=== PATIENT | female | born 1970 | race Caucasian/White ===

== ENCOUNTER 2024-09-13 12:56 | Outpatient (AMB) | payer BC, SELFPAY ==
--- OUTSIDE RECORDS SUMMARY | 2024-09-13 13:00 | XMS_ITS | Data Portability ---
Author Organization [place] [facility] Formerly [facility], Allergy Address [address] [address] Care Team Providers Care Healthcare Management Consultant Name Role Phone MIRTREVIN Primary Care Provider Assessment No assessment recorded. Plan of Treatment Reminders Order Date Submit Date Provider Last Modified By Organization Details Last Modified Time Details Appointments Estabs hed- Allergy f-up 6mon 2024 03:00P M KEYLA Ness MD Not available Not available Not available Lab None recorded . Referral None recorded . Procedures None recorded . Surgeries None recorded . Imaging None recorded . Medication Orders EpiPen 2-Christopher 0.3 mg/0.3 mL injectio n, auto-inj shannon 2023 024 [id number], [address], [place], [phone], 04/11/2024 15:20:25 Patient TargetsNo targets recorded. Patient InstructionsNo instructions recorded. Reason for Referral None Reported. Results Created Date Observation Date Name Description Value Unit Range Abnormal Flag Note LastModifiedBy Organization Detail LastModifiedTime 05/08/20 24 09/27/2022 imagi ng/di agnos tic resul t No observ ation record ed. [email or web address] Not Available 22:22:01 05/08/20 24 06/18/2020 imagi ng/di agnos tic resul t No observ ation record ed. [email or web address] Not Available 22:23:32 05/08/20 24 09/27/2022 audio gram No observ ation record ed. [email or web address] Not Available 22:23:51 05/08/20 24 06/18/2020 audio gram No observ ation record ed. [email or web address] Not Available 22:25:01 Result Notes None recorded. Problems Name Problem SNOMED Code Status Onset Date Resolution Date Notes Provider Name and Address Organization Details Recorded Time Sensorine ural hearing loss in left ear 83691692922 109 Active 2022 Sensorine ural hearing loss, unilatera l, left ear, with restricte d hearing on the contralat eral side; Note: Date Diagnosed : 09/27/2022 2:57 PM (H90.A22) Not Available [facility] 4 02:28:00 Bilateral disorder of Eustachia n tubes 60239063335 50463 Active 2022 Other specified disorders of Eustachia n tube, bilateral ; Note: Date Diagnosed : 09/27/2022 2:57 PM (H69.83) Not Available [facility] 4 02:28:07 Conductiv e hearing loss of right ear 6793830146 Active 2022 Conductiv e hearing loss, unilatera l, right ear with restricte d hearing on the contralat eral side; Note: Date Diagnosed : 09/27/2022 2:57 PM (H90.A11) Not Available [facility] 4 02:28:27 Sensorine ural hearing loss of bilateral ears 604720468 Active 2019 Sensorine ural hearing loss, bilateral ; Note: Date Diagnosed : 06/18/2020 2:43 PM (H90.3) Not Available [facility] 4 02:27:55 Allergic rhinitis 90840882 Active 2019 Other allergic rhinitis; Note: Date Diagnosed : 06/18/2020 3:13 PM (J30.89) Not Available [facility] 4 02:27:56 Perennial allergic rhinitis 376053068 Active 2023 KEYLA NEWMAN MD [address] [place] [address], [place], [address] , [facility] - [facility] 4 15:16:24 Problem Notes None recorded. Procedures Surgical History None recorded. Imaging Results Imaging Date Name Status LastModified by Organiz ation Details LastModified Time 09/27/2022 imaging/diagno stic result completed Information not available 05/08/2024 22:22:01 06/18/2020 imaging/diagno stic result completed Information not available 05/08/2024 22:23:32 09/27/2022 audiogram completed Information not available 05/08/2024 22:23:51 06/18/2020 audiogram completed Information not available 05/08/2024 22:25:01 Procedure Notes None recorded. Medical Equipment None Reported. Medications Name Sig Start Date Stop Date Status Note LastModified by Organization Details LastModified Time buspirone 5 mg tablet active Medicati on ID: [id number] B rand Name: buspiron e Send Method: E-Prescr ibed Sub s Allowed: subs OK Medic ationGen ericName : buspiron e Not Available Not Available Not Available fluconazo le 150 mg tablet TAKE 1 TABLET BY MOUTH DAILY active Not Available Not Available No t Available Zyrtec 10 mg tablet 2019 active Medicati on ID: [id number] B rand Name: Zyrtec S end Method: E-Prescr ibed Sub s Allowed: subs OK Medic ationGen ericName : Zyrtec Not Available Not Available Not Available ciproflox acin 250 mg tablet TAKE 1 TABLET BY MOUTH TWICE DAILY active Not Available Not Available No t Available amoxicill in 500 mg tablet active Not Available Not Available Not Available paroxetin e 30 mg tablet TAKE 1 TABLET BY MOUTH DAILY active Not Available Not Available No t Available paroxetin e 20 mg tablet TAKE 1 TABLET BY MOUTH DAILY active Not Available Not Available No t Available buspirone 10 mg tablet TAKE 1 TABLET BY MOUTH TWICE DAILY active Not Available Not Available No t Available losartan 25 mg tablet 2019 active Medicati on ID: [id number] B rand Name: losartan Send Method: E-Prescr ibed Sub s Allowed: subs OK Medic ationGen ericName : losartan Not Available Not Available Not Available buspirone 7.5 mg tablet TAKE 1 TABLET BY MOUTH TWICE DAILY active Not Available Not Available No t Available [address] 10 mg tablet 11/08 completed Medicati on ID: [id number] B rand Name: monteluk ast Send Method: E-Prescr ibed Sub s Allowed: subs OK Medic ationGen ericName : montel[place] ast Not Available Not Available Not Available epinephri ne 0.3 mg/0.3 mL injection , auto-inje ctor Take 1 auto by injectio n route. active Not Available Not Available No t Available losartan 100 mg-hydroc hlorothia zide 12.5 mg tablet TAKE 1 TABLET BY MOUTH DAILY active Not Available Not Available No t Available GaviLyte- G 236 gram-22.7 4 gram-6.74 gram-5.86 gram oral solution DRINK 1 GLASS EVERY 15-30 MINIUTES UNTIL FINISHED active Not Available Not Available No t Available OneTouch Verio test strips USE TWICE DAILY TO CHECK SUGAR active Not Available Not Available No t Available Flonase Allergy Relief 50 mcg/actua tion nasal spray,[employer] 2019 active Medicati on ID: [id number] B rand Name: Flonase Allergy Relief S end Method: E-Prescr ibed Sub s Allowed: subs OK Medic ationGen ericName : Flonase Allergy Relief Not Available Not Available Not Available OneTouch Verio Flex Meter USE TWICE DAILY active Not Available Not Available No t Available Mounjaro 5 mg/0.5 mL subcutane ous pen injector ADMINIST ER 5 MG UNDER THE SKIN WEEKLY active Not Available Not Available No t Available Mounjaro 2.5 mg/0.5 mL subcutane ous pen injector ADMINIST ER 2.5 MG UNDER THE SKIN WEEKLY active Not Available Not Available No t Available OneTouch UltraSoft 2 Lancet 30 gauge USE TO TEST SUGAR TWICE DAILY active Not Available Not Available No t Available Vitals Date Recorded Body height Body mass index (BMI) Body weight Provider Name and Address Organization Details Last Updated DateTime 04/11/2024 157.48 cm 34.2 kg/m2 37790.77 g Louis Murillo [place] [facility] 04/11/2024 14:59:48 Social History None recorded. Functional Status None recorded. Mental Status None recorded. Family History Nothing Reported. Medical History No medical history recorded. Gynecological HistoryNo gynecological history recorded. Obstetrics History GPAL:G 0 P 0 0 0 0 Past Encounters Encounter ID Performer Location Encounter Start Date Encounter Closed Date Diagnosis/Indication Diagnosis SNOMED-CT Code Diagnosis ICD10 Code [id number] KEYLA NEWMAN MD [facility] [address] [place] [address] 04/11/2024 14:24:56 04/11/2024 15:23:15 Perennial allergic rhinitis 671575952 J30.89 Health Concerns Section Related Observation LastModified by Organization Detai ls LastModified Time None Recorded Concern Status LastModified by Organization Details LastModified Time None Recorded Advance Directives Directive None Recorded Payers Encounter Date Sequence Insurance Name Policy Number Policy Benito Covered Member ID Benito Member ID Guarantor Name 04/11/2024 1 [employer]: [employer] [id number] Ayleen Perez [id number] Ayleen Perez Notes Date Note Type Note Provider Name and Address Organization Details Recorded Time 04/11/2024 text/html Began SLIT 11/2022. She has noted less ear infections since she began. She notes less nasal drainage too. No local or systemic reactions. Epipen has . She is using zyrtec. Uses flonase as needed. KEYLA NEWMAN MD [address] [place] [address], [phone], [facility] - [facility] 04/11/2024 15:20:08 OBGyn Episode No OBEpisode recorded.
--- OUTSIDE RECORDS SUMMARY | 2024-09-13 13:00 | XMS_ITS ---
Author Organization [facility] Address [address] [place] [address] Care Team Providers Care Remote Sensing Technologist Name Role Phone DAE YOUNGBLOOD Primary Care Provider NICO Smith Unavailable [phone] JEAN PIERRE ACOSTA Unavailable [phone] REASON FOR VISIT Wt mgt f/u MEDICATIONS Medication SIG (Take, Route, Frequency, Duration) Notes Start Date End Date Status Mounjaro 2.5 MG/0.5ML 2.5mg Subcutaneous weekly for 30 days Not-Taking Mounjaro 5 MG/0.5ML ADMINISTER 5 MG UNDE R THE SKIN WEEKLY for 28 Not-Taking Mounjaro 7.5 MG/0.5ML 7.5mg Subcutaneous weekly for 28 days 07/12/2024 Active Mounjaro 5 MG/0.5ML 5mg Subcutaneous wee kly for 30 days Active ZyrTEC Allergy 10 MG 1 tablet Orally Onc e a day Active Losartan Potassium-HCTZ 50-12.5 MG 1 tablet Orally Once a day Active busPIRone HCl 15 MG 1 tablet Orally Twic e a day Active PARoxetine HCl 30 MG 1 tablet in the mor suzanne Orally Once a day Active PROBLEMS Problem Type ICD Code Onset Dates Problem Status W/U Status Risk SNOMED Code Notes Problem Obesity (BMI 30-39.9) (E66.9) Active confirmed 086944932 Problem Nutritional counseling (Z71.3) Active confirmed 522268635 Problem Hyperlipidemia, unspecified hyperlipidemia type (E78.5) Active confirmed 72025019 VITAL SIGNS Heart Rate 69 /min 08/09/2024 Blood pressure systolic 120 mm Hg 08/09/20 24 Blood pressure diastolic 76 mm Hg 024 Weight 181 lbs 08/09/2024 BMI 33.1 kg/m2 08/09/2024 Height 62 in 08/09/2024 Oximetry 98 % 08/09/2024 Encounters Encounter Location Date Provider Diagnosis [address] [facility] [address] [place] [address] 08/09/2024 JEAN PIERRE ACOSTA Obesity (BMI 30-39.9 ) E66.9 ; BMI 33.0-33.9,adult Z68.33 ; Type 2 diabetes mellitus without complication, without long-term current use of insulin E11.9 ; PCOS (polycystic ovarian syndrome) E28.2 ; Hyperlipidemia, unspecified hyperlipidemia type E78.5 and Nutritional counseling Z71.3 ASSESSMENTS Encounter Date Diagnosis Assessment Notes Treatment Notes Treatment Clinical Notes Section Notes 08/09/2024 Obesity (BMI 30-39.9) (ICD-10 - E66.9) Ayleen is a 53-year-old female with a PMH of T2DM, HLD, PCOS that presents for weight management follow-up. Reviewed [facility] holistic and medical approach to weight loss with emphasis on lifestyle modification. 08/09/2024: Weight: 181, BMI: 33. Reviewed SECA/goals for implementing sustainable lifestyle changes. Patient is encouraged to continue walking regularly, goal 8-10k steps/day. Also discussed the importance of strength training with proper safety/body mechanics for maintenance of muscle mass/bone health. Patient encouraged to drink 60-80oz water/day. Reviewed the importance of adequate nutrition in terms of protein/calorie intake in the setting of GLP-1 induced appetite suppression. Goal 80 g of protein/day. Plan to continue Mounjaro 7.5 mg SC weekly and follow-up as scheduled. 07/12/2024, Weight 186, BMI 34.1 (+4 lbs) 05/10/2024, Weight 184lbs, BMI 33.7 (-21lbs) 11/28/2023, Weight 205lbs , BMI 37 (-17lbs) 09/30/2023: Weight 222 lbs, BMI 40.7 All questions answered to the patient's satisfaction. Patient demonstrates understanding of diagnosis and treatments discussed. Follow-up at next scheduled appointment, sooner should any questions/concerns arise. Case discussed with collaborating physician Martínez Marrero who has reviewed the assessment/plan. Chart, medications, labs, and vital signs reviewed. Dictation completed with the use of [employer] voice recognition software, prone to medical misidentifications and grammatical errors. All errors are unintentional. Although the practitioner does try to identify and correct errors, some may be present. Please do not hesitate to contact the practitioner for clarification. Total time spent was 25 minutes with >50% on coordination of care and patient education. 08/09/2024 BMI 33.0-33.9,adult (ICD-10 - Z68.33) Ayleen is a 53-year-old female with a PMH of T2DM, HLD, PCOS that presents for weight management follow-up. Reviewed [facility] holistic and medical approach to weight loss with emphasis on lifestyle modification. 08/09/2024: Weight: 181, BMI: 33. Reviewed SECA/goals for implementing sustainable lifestyle changes. Patient is encouraged to continue walking regularly, goal 8-10k steps/day. Also discussed the importance of strength training with proper safety/body mechanics for maintenance of muscle mass/bone health. Patient encouraged to drink 60-80oz water/day. Reviewed the importance of adequate nutrition in terms of protein/calorie intake in the setting of GLP-1 induced appetite suppression. Goal 80 g of protein/day. Plan to continue Mounjaro 7.5 mg SC weekly and follow-up as scheduled. 07/12/2024, Weight 186, BMI 34.1 (+4 lbs) 05/10/2024, Weight 184lbs, BMI 33.7 (-21lbs) 11/28/2023, Weight 205lbs , BMI 37 (-17lbs) 09/30/2023: Weight 222 lbs, BMI 40.7 All questions answered to the patient's satisfaction. Patient demonstrates understanding of diagnosis and treatments discussed. Follow-up at next scheduled appointment, sooner should any questions/concerns arise. Case discussed with collaborating physician Martínez Marrero who has reviewed the assessment/plan. Chart, medications, labs, and vital signs reviewed. Dictation completed with the use of [employer] voice recognition software, prone to medical misidentifications and grammatical errors. All errors are unintentional. Although the practitioner does try to identify and correct errors, some may be present. Please do not hesitate to contact the practitioner for clarification. Total time spent was 25 minutes with >50% on coordination of care and patient education. 08/09/2024 Type 2 diabetes mellitus without complication, without long-term current use of insulin (ICD-10 - E11.9) Ayleen is a 53-year-old female with a PMH of T2DM, HLD, PCOS that presents for weight management follow-up. Reviewed [facility] holistic and medical approach to weight loss with emphasis on lifestyle modification. 08/09/2024: Weight: 181, BMI: 33. Reviewed SECA/goals for implementing sustainable lifestyle changes. Patient is encouraged to continue walking regularly, goal 8-10k steps/day. Also discussed the importance of strength training with proper safety/body mechanics for maintenance of muscle mass/bone health. Patient encouraged to drink 60-80oz water/day. Reviewed the importance of adequate nutrition in terms of protein/calorie intake in the setting of GLP-1 induced appetite suppression. Goal 80 g of protein/day. Plan to continue Mounjaro 7.5 mg SC weekly and follow-up as scheduled. 07/12/2024, Weight 186, BMI 34.1 (+4 lbs) 05/10/2024, Weight 184lbs, BMI 33.7 (-21lbs) 11/28/2023, Weight 205lbs , BMI 37 (-17lbs) 09/30/2023: Weight 222 lbs, BMI 40.7 All questions answered to the patient's satisfaction. Patient demonstrates understanding of diagnosis and treatments discussed. Follow-up at next scheduled appointment, sooner should any questions/concerns arise. Case discussed with collaborating physician Martínez Marrero who has reviewed the assessment/plan. Chart, medications, labs, and vital signs reviewed. Dictation completed with the use of [employer] voice recognition software, prone to medical misidentifications and grammatical errors. All errors are unintentional. Although the practitioner does try to identify and correct errors, some may be present. Please do not hesitate to contact the practitioner for clarification. Total time spent was 25 minutes with >50% on coordination of care and patient education. 08/09/2024 PCOS (polycystic ovarian syndrome) (ICD-10 - E28.2) Ayleen is a 53-year-old female with a PMH of T2DM, HLD, PCOS that presents for weight management follow-up. Reviewed [facility] holistic and medical approach to weight loss with emphasis on lifestyle modification. 08/09/2024: Weight: 181, BMI: 33. Reviewed SECA/goals for implementing sustainable lifestyle changes. Patient is encouraged to continue walking regularly, goal 8-10k steps/day. Also discussed the importance of strength training with proper safety/body mechanics for maintenance of muscle mass/bone health. Patient encouraged to drink 60-80oz water/day. Reviewed the importance of adequate nutrition in terms of protein/calorie intake in the setting of GLP-1 induced appetite suppression. Goal 80 g of protein/day. Plan to continue Mounjaro 7.5 mg SC weekly and follow-up as scheduled. 07/12/2024, Weight 186, BMI 34.1 (+4 lbs) 05/10/2024, Weight 184lbs, BMI 33.7 (-21lbs) 11/28/2023, Weight 205lbs , BMI 37 (-17lbs) 09/30/2023: Weight 222 lbs, BMI 40.7 All questions answered to the patient's satisfaction. Patient demonstrates understanding of diagnosis and treatments discussed. Follow-up at next scheduled appointment, sooner should any questions/concerns arise. Case discussed with collaborating physician Martínez Marrero who has reviewed the assessment/plan. Chart, medications, labs, and vital signs reviewed. Dictation completed with the use of [employer] voice recognition software, prone to medical misidentifications and grammatical errors. All errors are unintentional. Although the practitioner does try to identify and correct errors, some may be present. Please do not hesitate to contact the practitioner for clarification. Total time spent was 25 minutes with >50% on coordination of care and patient education. 08/09/2024 Hyperlipidemia, unspecified hyperlipidemia type (ICD-10 - E78.5) Ayleen is a 53-year-old female with a PMH of T2DM, HLD, PCOS that presents for weight management follow-up. Reviewed [facility] holistic and medical approach to weight loss with emphasis on lifestyle modification. 08/09/2024: Weight: 181, BMI: 33. Reviewed SECA/goals for implementing sustainable lifestyle changes. Patient is encouraged to continue walking regularly, goal 8-10k steps/day. Also discussed the importance of strength training with proper safety/body mechanics for maintenance of muscle mass/bone health. Patient encouraged to drink 60-80oz water/day. Reviewed the importance of adequate nutrition in terms of protein/calorie intake in the setting of GLP-1 induced appetite suppression. Goal 80 g of protein/day. Plan to continue Mounjaro 7.5 mg SC weekly and follow-up as scheduled. 07/12/2024, Weight 186, BMI 34.1 (+4 lbs) 05/10/2024, Weight 184lbs, BMI 33.7 (-21lbs) 11/28/2023, Weight 205lbs , BMI 37 (-17lbs) 09/30/2023: Weight 222 lbs, BMI 40.7 All questions answered to the patient's satisfaction. Patient demonstrates understanding of diagnosis and treatments discussed. Follow-up at next scheduled appointment, sooner should any questions/concerns arise. Case discussed with collaborating physician Martínez Marrero who has reviewed the assessment/plan. Chart, medications, labs, and vital signs reviewed. Dictation completed with the use of [employer] voice recognition software, prone to medical misidentifications and grammatical errors. All errors are unintentional. Although the practitioner does try to identify and correct errors, some may be present. Please do not hesitate to contact the practitioner for clarification. Total time spent was 25 minutes with >50% on coordination of care and patient education. 08/09/2024 Nutritional counseling (ICD-10 - Z71.3) Ayleen is a 53-year-old female with a PMH of T2DM, HLD, PCOS that presents for weight management follow-up. Reviewed [facility] holistic and medical approach to weight loss with emphasis on lifestyle modification. 08/09/2024: Weight: 181, BMI: 33. Reviewed SECA/goals for implementing sustainable lifestyle changes. Patient is encouraged to continue walking regularly, goal 8-10k steps/day. Also discussed the importance of strength training with proper safety/body mechanics for maintenance of muscle mass/bone health. Patient encouraged to drink 60-80oz water/day. Reviewed the importance of adequate nutrition in terms of protein/calorie intake in the setting of GLP-1 induced appetite suppression. Goal 80 g of protein/day. Plan to continue Mounjaro 7.5 mg SC weekly and follow-up as scheduled. 07/12/2024, Weight 186, BMI 34.1 (+4 lbs) 05/10/2024, Weight 184lbs, BMI 33.7 (-21lbs) 11/28/2023, Weight 205lbs , BMI 37 (-17lbs) 09/30/2023: Weight 222 lbs, BMI 40.7 All questions answered to the patient's satisfaction. Patient demonstrates understanding of diagnosis and treatments discussed. Follow-up at next scheduled appointment, sooner should any questions/concerns arise. Case discussed with collaborating physician Martínez Marrero who has reviewed the assessment/plan. Chart, medications, labs, and vital signs reviewed. Dictation completed with the use of [employer] voice recognition software, prone to medical misidentifications and grammatical errors. All errors are unintentional. Although the practitioner does try to identify and correct errors, some may be present. Please do not hesitate to contact the practitioner for clarification. Total time spent was 25 minutes with >50% on coordination of care and patient education. PLAN OF TREATMENT Next Appt Details Provider Name:NICO LARSON, 09/17/2024 11:15:00 AM, [address] [place] [address], [address], [address], Progress Notes * IRWIN CARLSONOB:1970 (53 yo F)Acc No.[id number]:08/09/2024 Patient:??AYLEEN CARLSON Provider:??JEAN PIERRE ACOSTA PA-C :1970?Age:53 Y?Sex:Fe male Date:08/09/2024 Address:[address] [place], [place] [id number] Pcp:DAE YOUNGBLOOD Subjective: * Chief Complaints: * ?1. Wt mgt f/u. * HPI: ?Constitutional:? Ayleen is a 53-year-old female with a PMH of T2DM, HLD, PCOS presents for weight management follow-up. Currently taking Mounjaro 7.5 mg SC weekly with compliance. Reports adequate appetite suppression. Denies the presence of side effects including nausea or vomiting. Does report occasional constipation managed effectively with dietary fiber. Reports walking and recent added weightbearing exercise her primary forms of physical activity. Looking forward to starting exercise videos with her [id number]. Averaging 3 meals/day. Typical breakfast is a protein shake comprised of milk, ice, banana, and protein powder. Typical lunch is leftovers. She usually has 1 snack which is generally under 200 nyasia between lunch and dinner. Dinner is typically a protein, veggie, and carb/starch. Patient practicing portion control regularly. States water intake could be better, primarily drinking sugar/calorie free sparkling ICE drinks. * ROS:?Constitutional: Denies sudden weight loss, fever, night sweats, excessive fatigue, or changes in sleep. ???CV: Denies chest pain or heart palpitations. ???Respiratory: Denies SOB, wheezing, or pleuritic pain. ???GI: Denies n/v/d, constipation, blood in stools, pain associated with eating, indigestion, or difficulty/pain with swallowing. ???MSK: Denies back pain, joint deformity/pain, or muscle weakness. ???Integumentary: Denies skin changes. ???Endocrine: Denies polyuria, polyphagia, or polydipsia. No heat/cold intolerance or excessive thirst. * Medical History:??High blood pressure, type II diabetes, Anxiety, Depression. * Family History:??Father: dec eased.??Mother: alive.?? father - stroke mother- breast cancer, hypertension, diabetes and stroke. * Social History:?Pt quit tobacco products in 1999 ???also quit alcohol use in 2021 ???admits to daily marijuana use. * Medications:??Taking Mounjar o 5 MG/0.5ML Solution Pen-injector 5mg Subcutaneous weekly , Taking ZyrTEC Allergy 10 MG Tablet 1 tablet Orally Once a day , Taking Losartan Potassium-HCTZ 50-12.5 MG Tablet 1 tablet Orally Once a day , Taking busPIRone HCl 15 MG Tablet 1 tablet Orally Twice a day , Taking PARoxetine HCl 30 MG Tablet 1 tablet in the morning Orally Once a day , Taking Mounjaro 7.5 MG/0.5ML Solution Auto-injector 7.5mg Subcutaneous weekly , Not-Taking Mounjaro 5 MG/0.5ML Solution Pen-injector ADMINISTER 5 MG UNDER THE SKIN WEEKLY , Not-Taking Mounjaro 2.5 MG/0.5ML Solution Pen-injector 2.5mg Subcutaneous weekly , Medication List reviewed and reconciled with the patient Objective: * Vitals:??HR:69/min, BP:120/7 6mm Hg, Wt:181lbs, BMI:33.1Index, Ht: 62 in, Oxygen sat %:98%. * Physical Examination:?General: Age appropriate, well-appearing 53-year-old female in no acute distress, speaking in full sentences without respiratory compromise. Well groomed, well developed. Alert, interactive. ?Skin: Warm, dry and intact. No lesions/rashes/erythema. ?HEENT: Normocephalic/atraumatic. ?Lungs: Clear to auscultation bilaterally. ?CV: RRR. ?Neuro: CN II-XII grossly intact. Steady gait with non-assisted ambulation observed. ?Psych: Stable mood and affect. Assessment: * Assessment: 1.??Obesity (BMI 30-39.9) - E66.9 (Primary)??2.??BMI 33.0-33.9,adult - Z68.33??3.??Type 2 diabetes mellitus without complication, without long-term current use of insulin - E11.9??4.??PCOS (polycystic ovarian syndrome) - E28.2??5.??Hyperlipidemia, unspecified hyperlipidemia type - E78.5??6.??Nutritional counseling - Z71.3?? Ayleen is a 53-year-old femal e with a PMH of T2DM, HLD, PCOS that presents for weight management follow-up. Reviewed [facility] holistic and medical approach to weight loss with emphasis on lifestyle modification. 08/09/2024: Weight: 181, BMI: 33. Reviewed SECA/goals for implementing sustainable lifestyle changes. Patient is encouraged to continue walking regularly, goal 8- 10k steps/day. Also discussed the importance of strength training with proper safety/body mechanics for maintenance of muscle mass/bone health. Patient encouraged to drink 60-80oz water/day. Reviewed the importance of adequate nutrition in terms of protein/calorie intake in the setting of GLP-1 induced appetite suppression. Goal 80 g of protein/day. Plan to continue Mounjaro 7.5 mg SC weekly and follow-up as scheduled. 07/12/2024, Weight 186, BMI 34.1 (+4 lbs) 05/10/2024, Weight 184lbs, BMI 33.7 (-21lbs) 11/28/2023, Weight 205lbs , BMI 37 (-17lbs) 09/30/2023: Weight 222 lbs, BMI 40.7 All questions answered to the patient's satisfaction. Patient demonstrates understanding of diagnosis and treatments discussed. Follow-up at next scheduled appointment, sooner should any questions/concerns arise. Case discussed with collaborating physician Martínez Marrero who has reviewed the assessment/plan. Chart, medications, labs, and vital signs reviewed. Dictation completed with the use of [employer] voice recognition software, prone to medical misidentifications and grammatical errors. All errors are unintentional. Although the practitioner does try to identify and correct errors, some may be present. Please do not hesitate to contact the practitioner for clarification. Total time spent was 25 minutes with >50% on coordination of care and patient education. Plan: * Treatment: * Procedure Codes:??G0447 FCE- FCE BEHAVRL CNSL OBESITY 15 MIN, Modifiers: 59 * Images: Billing Information: * Visit Code:?? 76466 Office Visit, Est Pt., Level 4. * Procedure Codes:?? G0447 FCE-FCE BEHAVRL CNSL OBESITY 15 MIN. Modifiers: 59 * Sign off status: Completed true * Provider:??JEAN PIERRE ACOSTA PA-C Date:?? 08/09/2024 History and Physical Notes * HPI (History of Present Illness) Category Sub-Category Detail Notes Category Not es Constitutional Ayleen is a 53 -year-old female with a PMH of T2DM, HLD, PCOS presents for weight management follow-up. Currently taking Mounjaro 7.5 mg SC weekly with compliance. Reports adequate appetite suppression. Denies the presence of side effects including nausea or vomiting. Does report occasional constipation managed effectively with dietary fiber. Reports walking and recent added weightbearing exercise her primary forms of physical activity. Looking forward to starting exercise videos with her [id number]. Averaging 3 meals/day. Typical breakfast is a protein shake comprised of milk, ice, banana, and protein powder. Typical lunch is leftovers. She usually has 1 snack which is generally under 200 nyasia between lunch and dinner. Dinner is typically a protein, veggie, and carb/starch. Patient practicing portion control regularly. States water intake could be better, primarily drinking sugar/calorie free sparkling ICE drinks. Physical Examination Category Sub-Category Detail Notes Section Note s General: Age appropriate, well-appearing 53-year-old female in no acute distress, speaking in full sentences without respiratory compromise. Well groomed, well developed. Alert, interactive. Skin: Warm, dry and intact. No lesions/rashes/erythema. HEENT: Normocephalic/atraumatic. Lungs: Clear to auscultation bilaterally. CV: RRR. Neuro: CN II-XII grossly intact. Steady gait with non-assisted ambulation observed. Psych: Stable mood and affect.
--- OUTSIDE RECORDS SUMMARY | 2024-09-13 13:00 | XMS_ITS ---
Author Organization [facility] Address [address] [place] [address] Care Team Providers Care Circulation Representative Name Role Phone DAE YOUNGBLOOD Primary Care Provider UnavailNICO Allen Unavailable [phone] REASON FOR VISIT Wt mgt f/u MEDICATIONS Medication SIG (Take, Route, Frequency, Duration) Notes Start Date End Date Status Losartan Potassium-HCTZ 50-12.5 MG 1 tablet Orally Once a day A ctive ZyrTEC Allergy 10 MG 1 tablet Orally Once a day Active Mounjaro 5 MG/0.5ML 5mg Subcutaneous wee kly for 30 days Active busPIRone HCl 15 MG 1 tablet Orally Twice a day Active PARoxetine HCl 30 MG 1 tablet in the mor suzanne Orally Once a day Active Mounjaro 2.5 MG/0.5ML 2.5mg Subcutaneous weekly for 30 days Active PROBLEMS Problem Type ICD Code Onset Dates Problem Status W/U Status Risk SNOMED Code Notes Problem BMI 33.0-33.9,ad ult (Z68.33) Active confirmed [id number] VITAL SIGNS Heart Rate 73 /min 05/10/2024 Blood pressure systolic 126 mm Hg 05/10/20 24 Blood pressure diastolic 80 mm Hg 024 Weight 184 lbs 05/10/2024 BMI 33.65 kg/m2 05/10/2024 Height 62 in 05/10/2024 Oximetry 98 % 05/10/2024 Encounters Encounter Location Date Provider Diagnosis [facility] [address] [facility] [address] [place] [address] 05/10/2024 NICO LARSON Other obesity due to excess calories E66.09 ; BMI 33.0-33.9,adult Z68.33 ; Dietary counseling and surveillance Z71.3 ; Type 2 diabetes mellitus without complication, without long-term current use of insulin E11.9 and PCOS (polycystic ovarian syndrome) E28.2 ASSESSMENTS Encounter Date Diagnosis Assessment Notes Treatment Notes Treatment Clinical Notes Section Notes 05/10/2024 Other obesity due to excess calories (ICD-10 - E66.09) #Weight Management 05/10/2024 She is thriving on dual incretin therapy Increase Mounjaro to 5 mg Updated hemoglobin A1c euglycemic today at 5.3 previously 7.9 Total time spent today was 30 minutes of which greater than 50% was spent on coordinating and counseling Patient has been found to be obese with a BMI of (33). Patient has class (1) obesity. We are a board certified obesity and weight management practice Patient has trialed behavioral modification, dietary restrictions and exercise for a minimum of 6 months The most recent [place] [employer]ocrinologists and [place] [employer] guidelines recommend patients who have overweight BMI or obesity BMI, who also have metabolic syndrome, prediabetes, HLD, and other comorbidities or at risk of developing type 2 diabetes should aim for a weight loss goal of at least 10% of the baseline body weight Patient counseled regarding effects of GLP/GIP-1 agonists, and other FDA approved wgt loss meds with regards to a multifactorial approach of weight loss as mentioned above and not solely appetite suppression. We have discussed the mechanism of GLP-1's/GIP, dual incretins, appetitite suppressants I think this would be fantastic option for her given her metabolic workup and body composition We have discussed the risks and benefits and side effects including/and not limited to Sarcopenia, intestinal obstruction, constipation, nausea, lethargy, headache Discussed importance of protein consumption for muscle maintenance as well as strength and resistance training ,probiotics, B12 complex biotin , iron and other nutrients, To help avoid telogen effluvium We have discussed the lifelong requirement of nutritional supplementation And adherence to an exercise regimen as well as importance of follow-up We did discuss the neurohormonal changes that are occurring with these medications and Need for long-term Continued usage The patient understands and agrees There is no history of medullary thyroid cancer or multiple endocrine neoplasia There is also no history of cardiovascular disease, hypertension, palpitations, or arrhythmias In the setting of potential stimulant/amphetami ne use such as phentermine We have also discussed risks and benefits, and the use of compounded medications to help offset the national shortages as well as financial implications vs trade name drugs Patient was reassured and welcomed to the practice. We discussed that we stress a hollistic medical approach with emphasis on lifestyle modification. Patient was informed that a healthy lifestyle with exercise and good eating habits can help reduce his risk of medical complications. He is explained that obesity increases his risk of diabetes, cardiovascular disease, or organ damage. We spent a lot of time discussing the relationship between food, exercise, sleep, mental health and obesity. Patient was counseled on the importance EATING local, organic food when possible. Patient was educated on clean 15 and dirty dozen. I provided information about reading books called The Food Rules by Jarred Ventura and Eat Fat Get Lean by Dr Huber Pearson. Self education is important in the journey for weight management. Patient was offered diagnostic testing. We want to measure visceral adiposity, advanced body composition, adverse lipids, fatty acid balance, risk for heart disease and atherosclerosis, markers of inflammation and genetic susceptibility. Patient was counseled on weight management and was advised to lose weight using A. Meal Replacement Products We discussed the lifelong requirement of nutritional supplementation and adherence to an exercise regimen as well as importance of dietary follow-up Patient was educated on the replacement products called optifast. This is a good way of taking fixed amount of calories. It has been shown in studies to be ineffective weight management tool. We also recommend maintaining adequate protein intake and muscle composition, 1.5mg/kg This however has to be coupled with lifestyle intervention as well as laboratory data and EKG monitoring. It is impossible to know how a person will tolerate complete meal replacement. The side effects of meal replacement and weight loss could include syncopal attacks, dizziness, gallstones, potential cholecystectomy, possible heart attack and even . The benefits of meal replacement would be potential weight loss but no guarantees can be made. Meal replacement products are not covered by insurance. Once the patient has bought these products we cannot return them B. Lifestyle management which includes several strategies as below 1. Eat a low carbohydrate good fat good protein diet. Eliminate refined carbohydrates from the diet. Continue blood sugar and sugared beverages. Eat local organic when possible. Cook your own meals. Read food labels. None about healthy snacks. Portion control and food with low glycemic index 2. Exercise regularly. Try to get at least 6000 steps a day. Use a predominant to track activity level. Consider using apps like [employer], myfitnesspal, lose it, stick as needed for self-monitoring and weight management. Consider group exercises. Consider hiring a sales trainer. Regular exercise is napier to sustainable health and prevents as a buffer against weight regain 3. Sleep is most important for healing. Tried to sleep at least 8 hours a night. A good quality sleep needs a sleep ritual with ideal room temperature of around 68. It might help to take a shower and have no electronics in the room and sleep in a very dark room without artificial light. Start her sleep routine and get up early in the morning and go to bed on time 4. Make a social connection. Surround yourself with positive people with positive energy. Connect with friends and family. 5. Get into the habit of meditating and mindfulness while doing everything. 6. Go outside and connect with nature. C. Prescription medications Patient was educated on the use of prescription medications for medical weight loss. This is a growing list and includes phentermine, Topamax,Qsymia, contrave, belviq and saxenda. All prescription medications could have side effects including but not limited to kidney stones, seizure disorder cardiac arrhythmias heart attack pancreatitis etc. etc.. Patient was encouraged to read the prescription insert and have coaching with their pharmacist and make an informed decision about taking medication and know that these medications are being prescribed with good intentions and we do not know how a patient would react to her medication. Sudden medications are FDA approved for weight loss and there is also off label use depending on patient's inability to afford medications in an attempt to lose weight D. Behavioral counseling was done to establish a relationship between food and an mood. Patient was provided information about local counseling and psychiatry and Dr Yuan at [facility]. We would like to cover regular topics and build on low glycemic eating exercise mindful eating, using yoga and meditation along with deep breathing and connecting with friends and family. E. MASS PAT reviewed, Patient's current medications were reviewed and opinion was given on medication that can cause weight gain and can be substituted F. Patient was assessed for risk with obesity including and not limiting to atherosclerosis heart disease stroke kidney disease, restrictive lung disease, irritable bowel syndrome and overall mortality. Risk of developing prediabetes diabetes and metabolic syndrome was discussed G. Therapeutic plan: We have decided to make therapeutic plan which would include choosing wisely on calories restricting portion getting active, tracking weight, getting good quality sleep and working on time management H. Patient will follow up in (4) weeks for weight management Of note, some information is being carried forward from prior records for informational purposes only and is being cited so that efficiency, safety and quality of the patient's care is not compromised This note was prepared using voice recognition software and direct typing Please excuse inadvertent chiller hand or typing errors, or uncorrected word substitutions Although every attempt has been made by the provider to proofread this document, occasional misspellings and typographical errors may still be present Due to the previous pandemic, and the use of personal protective equipment (PPE) This may decrease voice recognition accuracy Inadvertent chiller hand errors may occur 05/10/2024 BMI 33.0-33.9,adult (ICD-10 - Z68.33) #Weight Management 05/10/2024 She is thriving on dual incretin therapy Increase Mounjaro to 5 mg Updated hemoglobin A1c euglycemic today at 5.3 previously 7.9 Total time spent today was 30 minutes of which greater than 50% was spent on coordinating and counseling Patient has been found to be obese with a BMI of (33). Patient has class (1) obesity. We are a board certified obesity and weight management practice Patient has trialed behavioral modification, dietary restrictions and exercise for a minimum of 6 months The most recent [place] [employer]ocrinologists and [place] [employer] guidelines recommend patients who have overweight BMI or obesity BMI, who also have metabolic syndrome, prediabetes, HLD, and other comorbidities or at risk of developing type 2 diabetes should aim for a weight loss goal of at least 10% of the baseline body weight Patient counseled regarding effects of GLP/GIP-1 agonists, and other FDA approved wgt loss meds with regards to a multifactorial approach of weight loss as mentioned above and not solely appetite suppression. We have discussed the mechanism of GLP-1's/GIP, dual incretins, appetitite suppressants I think this would be fantastic option for her given her metabolic workup and body composition We have discussed the risks and benefits and side effects including/and not limited to Sarcopenia, intestinal obstruction, constipation, nausea, lethargy, headache Discussed importance of protein consumption for muscle maintenance as well as strength and resistance training ,probiotics, B12 complex biotin , iron and other nutrients, To help avoid telogen effluvium We have discussed the lifelong requirement of nutritional supplementation And adherence to an exercise regimen as well as importance of follow-up We did discuss the neurohormonal changes that are occurring with these medications and Need for long-term Continued usage The patient understands and agrees There is no history of medullary thyroid cancer or multiple endocrine neoplasia There is also no history of cardiovascular disease, hypertension, palpitations, or arrhythmias In the setting of potential stimulant/amphetami ne use such as phentermine We have also discussed risks and benefits, and the use of compounded medications to help offset the national shortages as well as financial implications vs trade name drugs Patient was reassured and welcomed to the practice. We discussed that we stress a hollistic medical approach with emphasis on lifestyle modification. Patient was informed that a healthy lifestyle with exercise and good eating habits can help reduce his risk of medical complications. He is explained that obesity increases his risk of diabetes, cardiovascular disease, or organ damage. We spent a lot of time discussing the relationship between food, exercise, sleep, mental health and obesity. Patient was counseled on the importance EATING local, organic food when possible. Patient was educated on clean 15 and dirty dozen. I provided information about reading books called The Food Rules by Jarred Ventura and Eat Fat Get Lean by Dr Huber Pearson. Self education is important in the journey for weight management. Patient was offered diagnostic testing. We want to measure visceral adiposity, advanced body composition, adverse lipids, fatty acid balance, risk for heart disease and atherosclerosis, markers of inflammation and genetic susceptibility. Patient was counseled on weight management and was advised to lose weight using A. Meal Replacement Products We discussed the lifelong requirement of nutritional supplementation and adherence to an exercise regimen as well as importance of dietary follow-up Patient was educated on the replacement products called optifast. This is a good way of taking fixed amount of calories. It has been shown in studies to be ineffective weight management tool. We also recommend maintaining adequate protein intake and muscle composition, 1.5mg/kg This however has to be coupled with lifestyle intervention as well as laboratory data and EKG monitoring. It is impossible to know how a person will tolerate complete meal replacement. The side effects of meal replacement and weight loss could include syncopal attacks, dizziness, gallstones, potential cholecystectomy, possible heart attack and even . The benefits of meal replacement would be potential weight loss but no guarantees can be made. Meal replacement products are not covered by insurance. Once the patient has bought these products we cannot return them B. Lifestyle management which includes several strategies as below 1. Eat a low carbohydrate good fat good protein diet. Eliminate refined carbohydrates from the diet. Continue blood sugar and sugared beverages. Eat local organic when possible. Cook your own meals. Read food labels. None about healthy snacks. Portion control and food with low glycemic index 2. Exercise regularly. Try to get at least 6000 steps a day. Use a predominant to track activity level. Consider using apps like [employer], [employer], lose it, stick as needed for self-monitoring and weight management. Consider group exercises. Consider hiring a sales trainer. Regular exercise is napier to sustainable health and prevents as a buffer against weight regain 3. Sleep is most important for healing. Tried to sleep at least 8 hours a night. A good quality sleep needs a sleep ritual with ideal room temperature of around 68. It might help to take a shower and have no electronics in the room and sleep in a very dark room without artificial light. Start her sleep routine and get up early in the morning and go to bed on time 4. Make a social connection. Surround yourself with positive people with positive energy. Connect with friends and family. 5. Get into the habit of meditating and mindfulness while doing everything. 6. Go outside and connect with nature. C. Prescription medications Patient was educated on the use of prescription medications for medical weight loss. This is a growing list and includes phentermine, Topamax,Qsymia, contrave, belviq and saxenda. All prescription medications could have side effects including but not limited to kidney stones, seizure disorder cardiac arrhythmias heart attack pancreatitis etc. etc.. Patient was encouraged to read the prescription insert and have coaching with their pharmacist and make an informed decision about taking medication and know that these medications are being prescribed with good intentions and we do not know how a patient would react to her medication. Sudden medications are FDA approved for weight loss and there is also off label use depending on patient's inability to afford medications in an attempt to lose weight D. Behavioral counseling was done to establish a relationship between food and an mood. Patient was provided information about local counseling and psychiatry and Dr Yuan at [facility]. We would like to cover regular topics and build on low glycemic eating exercise mindful eating, using yoga and meditation along with deep breathing and connecting with friends and family. E. MASS PAT reviewed, Patient's current medications were reviewed and opinion was given on medication that can cause weight gain and can be substituted F. Patient was assessed for risk with obesity including and not limiting to atherosclerosis heart disease stroke kidney disease, restrictive lung disease, irritable bowel syndrome and overall mortality. Risk of developing prediabetes diabetes and metabolic syndrome was discussed G. Therapeutic plan: We have decided to make therapeutic plan which would include choosing wisely on calories restricting portion getting active, tracking weight, getting good quality sleep and working on time management H. Patient will follow up in (4) weeks for weight management Of note, some information is being carried forward from prior records for informational purposes only and is being cited so that efficiency, safety and quality of the patient's care is not compromised This note was prepared using voice recognition software and direct typing Please excuse inadvertent chiller hand or typing errors, or uncorrected word substitutions Although every attempt has been made by the provider to proofread this document, occasional misspellings and typographical errors may still be present Due to the previous pandemic, and the use of personal protective equipment (PPE) This may decrease voice recognition accuracy Inadvertent chiller hand errors may occur 05/10/2024 Dietary counseling and surveillance (ICD-10 - Z71.3) #Weight Management 05/10/2024 She is thriving on dual incretin therapy Increase Mounjaro to 5 mg Updated hemoglobin A1c euglycemic today at 5.3 previously 7.9 Total time spent today was 30 minutes of which greater than 50% was spent on coordinating and counseling Patient has been found to be obese with a BMI of (33). Patient has class (1) obesity. We are a board certified obesity and weight management practice Patient has trialed behavioral modification, dietary restrictions and exercise for a minimum of 6 months The most recent [place] [employer]ocrinologists and [place] [employer] guidelines recommend patients who have overweight BMI or obesity BMI, who also have metabolic syndrome, prediabetes, HLD, and other comorbidities or at risk of developing type 2 diabetes should aim for a weight loss goal of at least 10% of the baseline body weight Patient counseled regarding effects of GLP/GIP-1 agonists, and other FDA approved wgt loss meds with regards to a multifactorial approach of weight loss as mentioned above and not solely appetite suppression. We have discussed the mechanism of GLP-1's/GIP, dual incretins, appetitite suppressants I think this would be fantastic option for her given her metabolic workup and body composition We have discussed the risks and benefits and side effects including/and not limited to Sarcopenia, intestinal obstruction, constipation, nausea, lethargy, headache Discussed importance of protein consumption for muscle maintenance as well as strength and resistance training ,probiotics, B12 complex biotin , iron and other nutrients, To help avoid telogen effluvium We have discussed the lifelong requirement of nutritional supplementation And adherence to an exercise regimen as well as importance of follow-up We did discuss the neurohormonal changes that are occurring with these medications and Need for long-term Continued usage The patient understands and agrees There is no history of medullary thyroid cancer or multiple endocrine neoplasia There is also no history of cardiovascular disease, hypertension, palpitations, or arrhythmias In the setting of potential stimulant/amphetami ne use such as phentermine We have also discussed risks and benefits, and the use of compounded medications to help offset the national shortages as well as financial implications vs trade name drugs Patient was reassured and welcomed to the practice. We discussed that we stress a hollistic medical approach with emphasis on lifestyle modification. Patient was informed that a healthy lifestyle with exercise and good eating habits can help reduce his risk of medical complications. He is explained that obesity increases his risk of diabetes, cardiovascular disease, or organ damage. We spent a lot of time discussing the relationship between food, exercise, sleep, mental health and obesity. Patient was counseled on the importance EATING local, organic food when possible. Patient was educated on clean 15 and dirty dozen. I provided information about reading books called The Food Rules by Jarred Ventura and Eat Fat Get Lean by Dr Huber Pearson. Self education is important in the journey for weight management. Patient was offered diagnostic testing. We want to measure visceral adiposity, advanced body composition, adverse lipids, fatty acid balance, risk for heart disease and atherosclerosis, markers of inflammation and genetic susceptibility. Patient was counseled on weight management and was advised to lose weight using A. Meal Replacement Products We discussed the lifelong requirement of nutritional supplementation and adherence to an exercise regimen as well as importance of dietary follow-up Patient was educated on the replacement products called optifast. This is a good way of taking fixed amount of calories. It has been shown in studies to be ineffective weight management tool. We also recommend maintaining adequate protein intake and muscle composition, 1.5mg/kg This however has to be coupled with lifestyle intervention as well as laboratory data and EKG monitoring. It is impossible to know how a person will tolerate complete meal replacement. The side effects of meal replacement and weight loss could include syncopal attacks, dizziness, gallstones, potential cholecystectomy, possible heart attack and even . The benefits of meal replacement would be potential weight loss but no guarantees can be made. Meal replacement products are not covered by insurance. Once the patient has bought these products we cannot return them B. Lifestyle management which includes several strategies as below 1. Eat a low carbohydrate good fat good protein diet. Eliminate refined carbohydrates from the diet. Continue blood sugar and sugared beverages. Eat local organic when possible. Cook your own meals. Read food labels. None about healthy snacks. Portion control and food with low glycemic index 2. Exercise regularly. Try to get at least 6000 steps a day. Use a predominant to track activity level. Consider using apps like [employer], [employer], lose it, stick as needed for self-monitoring and weight management. Consider group exercises. Consider hiring a sales trainer. Regular exercise is napier to sustainable health and prevents as a buffer against weight regain 3. Sleep is most important for healing. Tried to sleep at least 8 hours a night. A good quality sleep needs a sleep ritual with ideal room temperature of around 68. It might help to take a shower and have no electronics in the room and sleep in a very dark room without artificial light. Start her sleep routine and get up early in the morning and go to bed on time 4. Make a social connection. Surround yourself with positive people with positive energy. Connect with friends and family. 5. Get into the habit of meditating and mindfulness while doing everything. 6. Go outside and connect with nature. C. Prescription medications Patient was educated on the use of prescription medications for medical weight loss. This is a growing list and includes phentermine, Topamax,Qsymia, contrave, belviq and saxenda. All prescription medications could have side effects including but not limited to kidney stones, seizure disorder cardiac arrhythmias heart attack pancreatitis etc. etc.. Patient was encouraged to read the prescription insert and have coaching with their pharmacist and make an informed decision about taking medication and know that these medications are being prescribed with good intentions and we do not know how a patient would react to her medication. Sudden medications are FDA approved for weight loss and there is also off label use depending on patient's inability to afford medications in an attempt to lose weight D. Behavioral counseling was done to establish a relationship between food and an mood. Patient was provided information about local counseling and psychiatry and Dr Yuan at [facility]. We would like to cover regular topics and build on low glycemic eating exercise mindful eating, using yoga and meditation along with deep breathing and connecting with friends and family. E. MASS PAT reviewed, Patient's current medications were reviewed and opinion was given on medication that can cause weight gain and can be substituted F. Patient was assessed for risk with obesity including and not limiting to atherosclerosis heart disease stroke kidney disease, restrictive lung disease, irritable bowel syndrome and overall mortality. Risk of developing prediabetes diabetes and metabolic syndrome was discussed G. Therapeutic plan: We have decided to make therapeutic plan which would include choosing wisely on calories restricting portion getting active, tracking weight, getting good quality sleep and working on time management H. Patient will follow up in (4) weeks for weight management Of note, some information is being carried forward from prior records for informational purposes only and is being cited so that efficiency, safety and quality of the patient's care is not compromised This note was prepared using voice recognition software and direct typing Please excuse inadvertent chiller hand or typing errors, or uncorrected word substitutions Although every attempt has been made by the provider to proofread this document, occasional misspellings and typographical errors may still be present Due to the previous pandemic, and the use of personal protective equipment (PPE) This may decrease voice recognition accuracy Inadvertent chiller hand errors may occur 05/10/2024 Type 2 diabetes mellitus without complication, without long-term current use of insulin (ICD-10 - E11.9) #Weight Management 05/10/2024 She is thriving on dual incretin therapy Increase Mounjaro to 5 mg Updated hemoglobin A1c euglycemic today at 5.3 previously 7.9 Total time spent today was 30 minutes of which greater than 50% was spent on coordinating and counseling Patient has been found to be obese with a BMI of (33). Patient has class (1) obesity. We are a board certified obesity and weight management practice Patient has trialed behavioral modification, dietary restrictions and exercise for a minimum of 6 months The most recent [place] [employer] endocrinologists and [place] [employer] guidelines recommend patients who have overweight BMI or obesity BMI, who also have metabolic syndrome, prediabetes, HLD, and other comorbidities or at risk of developing type 2 diabetes should aim for a weight loss goal of at least 10% of the baseline body weight Patient counseled regarding effects of GLP/GIP-1 agonists, and other FDA approved wgt loss meds with regards to a multifactorial approach of weight loss as mentioned above and not solely appetite suppression. We have discussed the mechanism of GLP-1's/GIP, dual incretins, appetitite suppressants I think this would be fantastic option for her given her metabolic workup and body composition We have discussed the risks and benefits and side effects including/and not limited to Sarcopenia, intestinal obstruction, constipation, nausea, lethargy, headache Discussed importance of protein consumption for muscle maintenance as well as strength and resistance training ,probiotics, B12 complex biotin , iron and other nutrients, To help avoid telogen effluvium We have discussed the lifelong requirement of nutritional supplementation And adherence to an exercise regimen as well as importance of follow-up We did discuss the neurohormonal changes that are occurring with these medications and Need for long-term Continued usage The patient understands and agrees There is no history of medullary thyroid cancer or multiple endocrine neoplasia There is also no history of cardiovascular disease, hypertension, palpitations, or arrhythmias In the setting of potential stimulant/amphetami ne use such as phentermine We have also discussed risks and benefits, and the use of compounded medications to help offset the national shortages as well as financial implications vs trade name drugs Patient was reassured and welcomed to the practice. We discussed that we stress a hollistic medical approach with emphasis on lifestyle modification. Patient was informed that a healthy lifestyle with exercise and good eating habits can help reduce his risk of medical complications. He is explained that obesity increases his risk of diabetes, cardiovascular disease, or organ damage. We spent a lot of time discussing the relationship between food, exercise, sleep, mental health and obesity. Patient was counseled on the importance EATING local, organic food when possible. Patient was educated on clean 15 and dirty dozen. I provided information about reading books called The Food Rules by Jarred Ventura and Eat Fat Get Lean by Dr Huber Pearson. Self education is important in the journey for weight management. Patient was offered diagnostic testing. We want to measure visceral adiposity, advanced body composition, adverse lipids, fatty acid balance, risk for heart disease and atherosclerosis, markers of inflammation and genetic susceptibility. Patient was counseled on weight management and was advised to lose weight using A. Meal Replacement Products We discussed the lifelong requirement of nutritional supplementation and adherence to an exercise regimen as well as importance of dietary follow-up Patient was educated on the replacement products called optifast. This is a good way of taking fixed amount of calories. It has been shown in studies to be ineffective weight management tool. We also recommend maintaining adequate protein intake and muscle composition, 1.5mg/kg This however has to be coupled with lifestyle intervention as well as laboratory data and EKG monitoring. It is impossible to know how a person will tolerate complete meal replacement. The side effects of meal replacement and weight loss could include syncopal attacks, dizziness, gallstones, potential cholecystectomy, possible heart attack and even . The benefits of meal replacement would be potential weight loss but no guarantees can be made. Meal replacement products are not covered by insurance. Once the patient has bought these products we cannot return them B. Lifestyle management which includes several strategies as below 1. Eat a low carbohydrate good fat good protein diet. Eliminate refined carbohydrates from the diet. Continue blood sugar and sugared beverages. Eat local organic when possible. Cook your own meals. Read food labels. None about healthy snacks. Portion control and food with low glycemic index 2. Exercise regularly. Try to get at least 6000 steps a day. Use a predominant to track activity level. Consider using apps like [employer], [employer], lose it, stick as needed for self-monitoring and weight management. Consider group exercises. Consider hiring a sales trainer. Regular exercise is napier to sustainable health and prevents as a buffer against weight regain 3. Sleep is most important for healing. Tried to sleep at least 8 hours a night. A good quality sleep needs a sleep ritual with ideal room temperature of around 68. It might help to take a shower and have no electronics in the room and sleep in a very dark room without artificial light. Start her sleep routine and get up early in the morning and go to bed on time 4. Make a social connection. Surround yourself with positive people with positive energy. Connect with friends and family. 5. Get into the habit of meditating and mindfulness while doing everything. 6. Go outside and connect with nature. C. Prescription medications Patient was educated on the use of prescription medications for medical weight loss. This is a growing list and includes phentermine, Topamax,Qsymia, contrave, belviq and saxenda. All prescription medications could have side effects including but not limited to kidney stones, seizure disorder cardiac arrhythmias heart attack pancreatitis etc. etc.. Patient was encouraged to read the prescription insert and have coaching with their pharmacist and make an informed decision about taking medication and know that these medications are being prescribed with good intentions and we do not know how a patient would react to her medication. Sudden medications are FDA approved for weight loss and there is also off label use depending on patient's inability to afford medications in an attempt to lose weight D. Behavioral counseling was done to establish a relationship between food and an mood. Patient was provided information about local counseling and psychiatry and Dr Yuan at [facility]. We would like to cover regular topics and build on low glycemic eating exercise mindful eating, using yoga and meditation along with deep breathing and connecting with friends and family. E. MASS PAT reviewed, Patient's current medications were reviewed and opinion was given on medication that can cause weight gain and can be substituted F. Patient was assessed for risk with obesity including and not limiting to atherosclerosis heart disease stroke kidney disease, restrictive lung disease, irritable bowel syndrome and overall mortality. Risk of developing prediabetes diabetes and metabolic syndrome was discussed G. Therapeutic plan: We have decided to make therapeutic plan which would include choosing wisely on calories restricting portion getting active, tracking weight, getting good quality sleep and working on time management H. Patient will follow up in (4) weeks for weight management Of note, some information is being carried forward from prior records for informational purposes only and is being cited so that efficiency, safety and quality of the patient's care is not compromised This note was prepared using voice recognition software and direct typing Please excuse inadvertent chiller hand or typing errors, or uncorrected word substitutions Although every attempt has been made by the provider to proofread this document, occasional misspellings and typographical errors may still be present Due to the previous pandemic, and the use of personal protective equipment (PPE) This may decrease voice recognition accuracy Inadvertent chiller hand errors may occur 05/10/2024 PCOS (polycystic ovarian syndrome) (ICD-10 - E28.2) #Weight Management 05/10/2024 She is thriving on dual incretin therapy Increase Mounjaro to 5 mg Updated hemoglobin A1c euglycemic today at 5.3 previously 7.9 Total time spent today was 30 minutes of which greater than 50% was spent on coordinating and counseling Patient has been found to be obese with a BMI of (33). Patient has class (1) obesity. We are a board certified obesity and weight management practice Patient has trialed behavioral modification, dietary restrictions and exercise for a minimum of 6 months The most recent [place] [employer] clinical endocrinologists and [place] [employer] guidelines recommend patients who have overweight BMI or obesity BMI, who also have metabolic syndrome, prediabetes, HLD, and other comorbidities or at risk of developing type 2 diabetes should aim for a weight loss goal of at least 10% of the baseline body weight Patient counseled regarding effects of GLP/GIP-1 agonists, and other FDA approved wgt loss meds with regards to a multifactorial approach of weight loss as mentioned above and not solely appetite suppression. We have discussed the mechanism of GLP-1's/GIP, dual incretins, appetitite suppressants I think this would be fantastic option for her given her metabolic workup and body composition We have discussed the risks and benefits and side effects including/and not limited to Sarcopenia, intestinal obstruction, constipation, nausea, lethargy, headache Discussed importance of protein consumption for muscle maintenance as well as strength and resistance training ,probiotics, B12 complex biotin , iron and other nutrients, To help avoid telogen effluvium We have discussed the lifelong requirement of nutritional supplementation And adherence to an exercise regimen as well as importance of follow-up We did discuss the neurohormonal changes that are occurring with these medications and Need for long-term Continued usage The patient understands and agrees There is no history of medullary thyroid cancer or multiple endocrine neoplasia There is also no history of cardiovascular disease, hypertension, palpitations, or arrhythmias In the setting of potential stimulant/amphetami ne use such as phentermine We have also discussed risks and benefits, and the use of compounded medications to help offset the national shortages as well as financial implications vs trade name drugs Patient was reassured and welcomed to the practice. We discussed that we stress a hollistic medical approach with emphasis on lifestyle modification. Patient was informed that a healthy lifestyle with exercise and good eating habits can help reduce his risk of medical complications. He is explained that obesity increases his risk of diabetes, cardiovascular disease, or organ damage. We spent a lot of time discussing the relationship between food, exercise, sleep, mental health and obesity. Patient was counseled on the importance EATING local, organic food when possible. Patient was educated on clean 15 and dirty dozen. I provided information about reading books called The Food Rules by Jarred Ventura and Eat Fat Get Lean by Dr Huber Pearson. Self education is important in the journey for weight management. Patient was offered diagnostic testing. We want to measure visceral adiposity, advanced body composition, adverse lipids, fatty acid balance, risk for heart disease and atherosclerosis, markers of inflammation and genetic susceptibility. Patient was counseled on weight management and was advised to lose weight using A. Meal Replacement Products We discussed the lifelong requirement of nutritional supplementation and adherence to an exercise regimen as well as importance of dietary follow-up Patient was educated on the replacement products called optifast. This is a good way of taking fixed amount of calories. It has been shown in studies to be ineffective weight management tool. We also recommend maintaining adequate protein intake and muscle composition, 1.5mg/kg This however has to be coupled with lifestyle intervention as well as laboratory data and EKG monitoring. It is impossible to know how a person will tolerate complete meal replacement. The side effects of meal replacement and weight loss could include syncopal attacks, dizziness, gallstones, potential cholecystectomy, possible heart attack and even . The benefits of meal replacement would be potential weight loss but no guarantees can be made. Meal replacement products are not covered by insurance. Once the patient has bought these products we cannot return them B. Lifestyle management which includes several strategies as below 1. Eat a low carbohydrate good fat good protein diet. Eliminate refined carbohydrates from the diet. Continue blood sugar and sugared beverages. Eat local organic when possible. Cook your own meals. Read food labels. None about healthy snacks. Portion control and food with low glycemic index 2. Exercise regularly. Try to get at least 6000 steps a day. Use a predominant to track activity level. Consider using apps like [employer], [employer], lose it, stick as needed for self-monitoring and weight management. Consider group exercises. Consider hiring a sales trainer. Regular exercise is napier to sustainable health and prevents as a buffer against weight regain 3. Sleep is most important for healing. Tried to sleep at least 8 hours a night. A good quality sleep needs a sleep ritual with ideal room temperature of around 68. It might help to take a shower and have no electronics in the room and sleep in a very dark room without artificial light. Start her sleep routine and get up early in the morning and go to bed on time 4. Make a social connection. Surround yourself with positive people with positive energy. Connect with friends and family. 5. Get into the habit of meditating and mindfulness while doing everything. 6. Go outside and connect with nature. C. Prescription medications Patient was educated on the use of prescription medications for medical weight loss. This is a growing list and includes phentermine, Topamax,Qsymia, contrave, belviq and saxenda. All prescription medications could have side effects including but not limited to kidney stones, seizure disorder cardiac arrhythmias heart attack pancreatitis etc. etc.. Patient was encouraged to read the prescription insert and have coaching with their pharmacist and make an informed decision about taking medication and know that these medications are being prescribed with good intentions and we do not know how a patient would react to her medication. Sudden medications are FDA approved for weight loss and there is also off label use depending on patient's inability to afford medications in an attempt to lose weight D. Behavioral counseling was done to establish a relationship between food and an mood. Patient was provided information about local counseling and psychiatry and Dr Yuan at [facility]. We would like to cover regular topics and build on low glycemic eating exercise mindful eating, using yoga and meditation along with deep breathing and connecting with friends and family. E. MASS PAT reviewed, Patient's current medications were reviewed and opinion was given on medication that can cause weight gain and can be substituted F. Patient was assessed for risk with obesity including and not limiting to atherosclerosis heart disease stroke kidney disease, restrictive lung disease, irritable bowel syndrome and overall mortality. Risk of developing prediabetes diabetes and metabolic syndrome was discussed G. Therapeutic plan: We have decided to make therapeutic plan which would include choosing wisely on calories restricting portion getting active, tracking weight, getting good quality sleep and working on time management H. Patient will follow up in (4) weeks for weight management Of note, some information is being carried forward from prior records for informational purposes only and is being cited so that efficiency, safety and quality of the patient's care is not compromised This note was prepared using voice recognition software and direct typing Please excuse inadvertent chiller hand or typing errors, or uncorrected word substitutions Although every attempt has been made by the provider to proofread this document, occasional misspellings and typographical errors may still be present Due to the previous pandemic, and the use of personal protective equipment (PPE) This may decrease voice recognition accuracy Inadvertent chiller hand errors may occur PLAN OF TREATMENT Medication Medication Name Sig Start Date Stop Date Notes Mounjaro 5 MG/0.5ML 5mg Subcutaneous weekly for 30 days Next Appt Details Provider Name:NICO LARSON, 09/17/2024 11:15:00 AM, [address] [facility], [address], [place], [address], Progress Notes * IRWIN CARLSONOB:1970 (53 yo F)Acc No.[id number]:05/10/2024 Patient:??CHAVA CARLSONEN Provider:??NICO LARSON NP :[id number]?Age:53 Y?Sex:Fe male Date:05/10/2024 Address:[address] [place], [place] [id number] Pcp:DAE YOUNGBLOOD Subjective: * Chief Complaints: * ?1. Wt mgt f/u. * HPI: ?Constitutional:? Patient is here today for a weight management f/u visit ?Patient seen and examined. ?Full past medical history, social history, family history, ?allergies and current medications were reviewed and updated. ?Body composition analysis reviewed today, as expected increased BMI, ?visceral adiposity, fat mass index, waist cirumference ?Good skeletal mass composition, Good water composition ?Caloric energy expenditure discussed ?#Weight Management ?05/10/2024 ?Tolerating Mounjaro 5mg. Injection days are Wednesdays. No s/e. ?Eating well, limiting sugar intake. ?No regimented exercise currently. Active throughout day around the house. ?Did join the [employer] and is hoping to start going with son in the near future. ?In office hgb A1c 05/10/24: 5.3, Down significantly from 7.9 ?Thriving and tolerating Quite well ?Happy with her progress ?Improvements in body composition ?Injection day: Fridays ?Discussed the importance of protein-calorie nutrition, maintaning muscle mass, vit b12, biotin, iron ?while on GLP-1 medications, dual incretins, appetite suppressants ?PMHx: HTN, *diabetes, depression, gestational diabetes, PCOS ?Medication: Zyrtec (everyday), paroxetine 30mg, and losartan 100 mg, ?Family hx: ?Dad (): stroke ?Mother: stroke and HTN ?05/10/2024, Weight 184lbs, BMI 33.7 (-21lbs) ?01/11/2024, Weight , BMI ?11/28/2023, Weight 205lbs , BMI 37 (-17lbs) ?09/30/2023: Weight 222 lbs, BMI 40.7 ?Patient referred to us by friend ?Patient works as teacher ?PCP @ [facility] [place]/[facility] ?Highest weight: 232 lbs ?Lowest weight: 160 lbs ?Goal weight: want to feel better / healthy ?OTTO screening/STOP-BANG/[place], yes, uses CPAP ?Metabolic workup: ?Comprehensive labs July 2023 ?CBC stable ?Electrolytes renal function LFTs are stable ?Hemoglobin A1c of 7.9 ?Total cholesterol 179, LDL 117, HDL 43, triglycerides 96 ?Has not had an echocardiogram recently. ?Diet: grab-and-go diet. no snacking, but portion control issues. ?Exercise: Currently not exercising however she is on her feet all day with house chores. ?Non-smoker. Vape: cannabis ?ETOH use: none ?Illicit drug use: none. * ROS:?All Other Systems:?Review of Systems (ROS)??All others negative except those mentioned in HPI.? * Medical History:??High blood pressure, type II diabetes, Anxiety, Depression. * Family History:??Father: dec eased.??Mother: alive.?? father - stroke mother- breast cancer, hypertension, diabetes and stroke. * Social History:?Pt quit tobacco products in 1999 ???also quit alcohol use in 2021 ???admits to daily marijuana use. * Medications:??Taking Mounjar o 2.5 MG/0.5ML Solution Pen-injector 2.5mg Subcutaneous weekly , Taking ZyrTEC Allergy 10 MG Tablet 1 tablet Orally Once a day , Taking Losartan Potassium-HCTZ 50-12.5 MG Tablet 1 tablet Orally Once a day , Taking busPIRone HCl 15 MG Tablet 1 tablet Orally Twice a day , Taking PARoxetine HCl 30 MG Tablet 1 tablet in the morning Orally Once a day , Taking Mounjaro 5 MG/0.5ML Solution Pen-injector 5mg Subcutaneous weekly , Medication List reviewed and reconciled with the patient Objective: * Vitals:??HR:73/min, BP:126/8 0mm Hg, Wt:184lbs, BMI:33.65Index, Ht: 62 in, Oxygen sat %:98%. * Examination: ?General Examination: ?GENERAL APPEARANCE:??in no acute distress, well developed, well nourished.??HEAD:??normocephalic, atraumatic.??EYES:??pupils equal, round, reactive to light and accommodation.??EARS:??normal.??ORAL CAVITY:??mucosa moist.??THROAT:??clear.??NECK/THYROID:??neck supple, full range of motion, no cervical lymphadenopathy.??SKIN:??no suspicious lesions, warm and dry.??HEART:??no murmurs, regular rate and rhythm, S1, S2 normal.??LUNGS:??clear to auscultation bilaterally.??ABDOMEN:??normal, bowel sounds present, soft, nontender, nondistended.??EXTREMITIES:??no clubbing, cyanosis, or edema.??NEUROLOGIC:??nonfocal, motor strength normal upper and lower extremities, sensory exam intact.? Assessment: * Assessment: 1.??Other obesity due to exc ess calories - E66.09 (Primary)??2.??BMI 33.0- 33.9,adult - Z68.33??3.??Dietary counseling and surveillance - Z71.3??4.??Type 2 diabetes mellitus without complication, without long-term current use of insulin - E11.9??5.??PCOS (polycystic ovarian syndrome) - E28.2?? #Weight Management 05/10/2024 She is thriving on dual incretin therapy Increase Mounjaro to 5 mg Updated hemoglobin A1c euglycemic today at 5.3 previously 7.9 Total time spent today was 30 minutes of which greater than 50% was spent on coordinating and counseling Patient has been found to be obese with a BMI of (33). Patient has class (1) obesity. We are a board certified obesity and weight management practice Patient has trialed behavioral modification, dietary restrictions and exercise for a minimum of 6 months The most recent [place] [employer] and [place] [employer] guidelines recommend patients who have overweight BMI or obesity BMI, who also have metabolic syndrome, prediabetes, HLD, and other comorbidities or at risk of developing type 2 diabetes should aim for a weight loss goal of at least 10% of the baseline body weight Patient counseled regarding effects of GLP/GIP-1 agonists, and other FDA approved wgt loss meds with regards to a multifactorial approach of weight loss as mentioned above and not solely appetite suppression. We have discussed the mechanism of GLP-1's/GIP, dual incretins, appetitite suppressants I think this would be fantastic option for her given her metabolic workup and body composition We have discussed the risks and benefits and side effects including/and not limited to Sarcopenia, intestinal obstruction, constipation, nausea, lethargy, headache Discussed importance of protein consumption for muscle maintenance as well as strength and resistance training ,probiotics, B12 complex biotin , iron and other nutrients, To help avoid telogen effluvium We have discussed the lifelong requirement of nutritional supplementation And adherence to an exercise regimen as well as importance of follow-up We did discuss the neurohormonal changes that are occurring with these medications and Need for long-term Continued usage The patient understands and agrees There is no history of medullary thyroid cancer or multiple endocrine neoplasia There is also no history of cardiovascular disease, hypertension, palpitations, or arrhythmias In the setting of potential stimulant/amphetamine use such as phentermine We have also discussed risks and benefits, and the use of compounded medications to help offset the national shortages as well as financial implications vs trade name drugs Patient was reassured and welcomed to the practice. We discussed that we stress a hollistic medical approach with emphasis on lifestyle modification. Patient was informed that a healthy lifestyle with exercise and good eating habits can help reduce his risk of medical complications. He is explained that obesity increases his risk of diabetes, cardiovascular disease, or organ damage. We spent a lot of time discussing the relationship between food, exercise, sleep, mental health and obesity. Patient was counseled on the importance EATING local, organic food when possible. Patient was educated on clean 15 and dirty dozen. I provided information about reading books called The Food Rules by Jarred Ventura and Eat Fat Get Lean by Dr Huber Pearson. Self education is important in the journey for weight management. Patient was offered diagnostic testing. We want to measure visceral adiposity, advanced body composition, adverse lipids, fatty acid balance, risk for heart disease and atherosclerosis, markers of inflammation and genetic susceptibility. Patient was counseled on weight management and was advised to lose weight using A. Meal Replacement Products We discussed the lifelong requirement of nutritional supplementation and adherence to an exercise regimen as well as importance of dietary follow-up Patient was educated on the replacement products called optifast. This is a good way of taking fixed amount of calories. It has been shown in studies to be ineffective weight management tool. We also recommend maintaining adequate protein intake and muscle composition, 1.5mg/kg This however has to be coupled with lifestyle intervention as well as laboratory data and EKG monitoring. It is impossible to know how a person will tolerate complete meal replacement. The side effects of meal replacement and weight loss could include syncopal attacks, dizziness, gallstones, potential cholecystectomy, possible heart attack and even . The benefits of meal replacement would be potential weight loss but no guarantees can be made. Meal replacement products are not covered by insurance. Once the patient has bought these products we cannot return them B. Lifestyle management which includes several strategies as below 1. Eat a low carbohydrate good fat good protein diet. Eliminate refined carbohydrates from the diet. Continue blood sugar and sugared beverages. Eat local organic when possible. Cook your own meals. Read food labels. None about healthy snacks. Portion control and food with low glycemic index 2. Exercise regularly. Try to get at least 6000 steps a day. Use a predominant to track activity level. Consider using apps like [employer], [employer], lose it, stick as needed for self-monitoring and weight management. Consider group exercises. Consider hiring a sales trainer. Regular exercise is napier to sustainable health and prevents as a buffer against weight regain 3. Sleep is most important for healing. Tried to sleep at least 8 hours a night. A good quality sleep needs a sleep ritual with ideal room temperature of around 68. It might help to take a shower and have no electronics in the room and sleep in a very dark room without artificial light. Start her sleep routine and get up early in the morning and go to bed on time 4. Make a social connection. Surround yourself with positive people with positive energy. Connect with friends and family. 5. Get into the habit of meditating and mindfulness while doing everything. 6. Go outside and connect with nature. C. Prescription medications Patient was educated on the use of prescription medications for medical weight loss. This is a growing list and includes phentermine, Topamax,Qsymia, contrave, belviq and saxenda. All prescription medications could have side effects including but not limited to kidney stones, seizure disorder cardiac arrhythmias heart attack pancreatitis etc. etc.. Patient was encouraged to read the prescription insert and have coaching with their pharmacist and make an informed decision about taking medication and know that these medications are being prescribed with good intentions and we do not know how a patient would react to her medication. Sudden medications are FDA approved for weight loss and there is also off label use depending on patient's inability to afford medications in an attempt to lose weight D. Behavioral counseling was done to establish a relationship between food and an mood. Patient was provided information about local counseling and psychiatry and Dr Yuan at [facility]. We would like to cover regular topics and build on low glycemic eating exercise mindful eating, using yoga and meditation along with deep breathing and connecting with friends and family. E. MASS PAT reviewed, Patient's current medications were reviewed and opinion was given on medication that can cause weight gain and can be substituted F. Patient was assessed for risk with obesity including and not limiting to atherosclerosis heart disease stroke kidney disease, restrictive lung disease, irritable bowel syndrome and overall mortality. Risk of developing prediabetes diabetes and metabolic syndrome was discussed G. Therapeutic plan: We have decided to make therapeutic plan which would include choosing wisely on calories restricting portion getting active, tracking weight, getting good quality sleep and working on time management H. Patient will follow up in (4) weeks for weight management Of note, some information is being carried forward from prior records for informational purposes only and is being cited so that efficiency, safety and quality of the patient's care is not compromised This note was prepared using voice recognition software and direct typing Please excuse inadvertent chiller hand or typing errors, or uncorrected word substitutions Although every attempt has been made by the provider to proofread this document, occasional misspellings and typographical errors may still be present Due to the previous pandemic, and the use of personal protective equipment (PPE) This may decrease voice recognition accuracy Inadvertent chiller hand errors may occur. Plan: * Treatment: * Procedures:?5.3. ? * Procedure Codes:??24547 GLYC ATED HEMOGLOBIN TEST, Modifiers: QW , G0447 FCE-FCE BEHAVRL CNSL OBESITY 15 MIN, Modifiers: 59 * Images: Billing Information: * Visit Code:?? 80977 Office Visit, Est Pt., Level 4. * Procedure Codes:?? 84912 GLYCATED HEMOGLOBIN TEST. Modifiers: QW G0447 FCE-FCE BEHAVRL CNSL OBESITY 15 MIN. Modifiers: 59 * Sign off status: Completed true * Provider:??NICO LARSON NP Date:??04/20 History and Physical Notes * HPI (History of Present Illness) Category Sub-Category Detail Notes Category Not es Constitutional Patient is here today for a weight management f/u visit Patient seen and examined. Full past medical history, social history, family history, allergies and current medications were reviewed and updated. Body composition analysis reviewed today, as expected increased BMI, visceral adiposity, fat mass index, waist cirumference Good skeletal mass composition, Good water composition Caloric energy expenditure discussed #Weight Management 05/10/2024 Tolerating Mounjaro 5mg. Injection days are Wednesdays. No s/e. Eating well, limiting sugar intake. No regimented exercise currently. Active throughout day around the house. Did join the [employer] and is hoping to start going with son in the near future. In office hgb A1c 05/10/24: 5.3, Down significantly from 7.9 Thriving and tolerating Quite well Happy with her progress Improvements in body composition Injection day: Fridays Discussed the importance of protein-calorie nutrition, maintaning muscle mass, vit b12, biotin, iron while on GLP-1 medications, dual incretins, appetite suppressants PMHx: HTN, *diabetes, depression, gestational diabetes, PCOS Medication: Zyrtec (everyday), paroxetine 30mg, and losartan 100 mg, Family hx: Dad (): stroke Mother: stroke and HTN 05/10/2024, Weight 184lbs, BMI 33.7 (-21lbs) 01/11/2024, Weight , BMI 11/28/2023, Weight 205lbs , BMI 37 (-17lbs) 09/30/2023: Weight 222 lbs, BMI 40.7 Patient referred to us by friend Patient works as teacher PCP @ [employer] Highest weight: 232 lbs Lowest weight: 160 lbs Goal weight: want to feel better / healthy OTTO screening/STOP-BANG/[place], yes, uses CPAP Metabolic workup: Comprehensive labs July 2023 CBC stable Electrolytes renal function LFTs are stable Hemoglobin A1c of 7.9 Total cholesterol 179, LDL 117, HDL 43, triglycerides 96 Has not had an echocardiogram recently. Diet: grab-and-go diet. no snacking, but portion control issues. Exercise: Currently not exercising however she is on her feet all day with house chores. Non-smoker. Vape: cannabis ETOH use: none Illicit drug use: none Examination Category Sub-Category Detail Notes Category Not es General Examination GENERAL APPEARANCE: in no ac [place] distress, well developed, well nourished HEAD: normocephalic, atrau matic EYES: pupils equal, round, reactive to light and accommodation EARS: normal THROAT: clear NECK/THYROID: neck supple, full ra nge of motion, no cervical lymphadenopathy HEART: no murmurs, regular rate and rhythm, S1, S2 normal LUNGS: clear to auscultatio n bilaterally ABDOMEN: normal, bowel sounds present, soft, nontender, nondistended NEUROLOGIC: nonfocal, motor stre ngth normal upper and lower extremities, sensory exam intact SKIN: no suspicious lesion s, warm and dry EXTREMITIES: no clubbing, cyanosi s, or edema ORAL CAVITY: mucosa moist
--- OUTSIDE RECORDS SUMMARY | 2024-09-13 13:00 | XMS_ITS | Patient Health Record ---
Author Organization [facility] Address [address] [place] [address] Care Team Providers Care Advertising Space Clerk Name Role Phone DAE YOUNGBLOOD Primary Care Provider UnavailNICO Allen Unavailable [phone] JORDIN MARRERO Unavailable [phone] JEAN PIERRE ACOSTA Unavailable [phone] ALLERGIES No Known Allergies REASON FOR REFERRAL No Information MEDICATIONS Medication SIG (Take, Route, Frequency, Duration) [...] tablet Orally Onc e a day Active PROBLEMS Problem Type ICD Code Onset Dates Problem Status W/U Status Risk SNOMED Code Notes Problem Vitamin D deficiency, unspecified (E55.9) Active confirmed Vitamin D deficiency (61899894) Problem Morbid (severe) obesity due to excess calories (E66.01) Active confirmed 211525577 Problem Other obesity due to excess calories (E66.09) Active confirmed 233956005 Problem Encounter for screening for lipoid disorders (Z13.220) Active confirmed Lipid screening (656698906) Problem Hyperlipidemia, unspecified hyperlipidemia type (E78.5) Active confirmed 50791259 Problem Adult general medical exam (Z00.00) Active confirmed Adult health examination (382651526) Problem Diabetes mellitus screening (Z13.1) Active confirmed Diabetes mellitus screening (708695683) Problem BMI 40.0-44.9, adult (Z68.41) Active confirmed 056051504 Problem Type 2 diabetes mellitus without complication, without long-term current use of insulin (E11.9) Active confirmed 272207305 Problem Obesity (BMI 30-39.9) (E66.9) Active confirmed 908037468 Problem Body mass index [BMI] 37.0-37.9, adult (Z68.37) Active confirmed 284854665 Problem BMI 33.0-33.9,adult (Z68.33) Active confirmed 190133920 Problem PCOS (polycystic ovarian syndrome) (E28.2) Active confirmed 536523341 Problem Encounter for screening for endocrine disorder (Z13.29) Active confirmed Endocrine/meta bolic screening (866012495) Problem Nutritional counseling (Z71.3) Active confirmed 555662276 VITAL SIGNS Heart Rate 69 /min 08/09/2024 Oximetry 98 % 08/09/2024 Blood pressure diastolic 76 mm Hg 08/09/2024 Height 62 in 08/09/2024 Blood pressure systolic 120 mm Hg 08/09/2024 Weight 181 lbs 08/09/2024 BMI 33.1 kg/m2 08/09/2024 Encounters Encounter Location Date Provider Diagnosis [place] [address] [address] 01/11/2024 NICO LARSON Type 2 diabetes mellitus without complication, without long-term current use of insulin E11.9 ; PCOS (polycystic ovarian syndrome) E28.2 ; Other obesity due to excess calories E66.09 and Body mass index [BMI] 37.0-37.9, adult Z68.37 [place] [address] [address] 09/30/2023 NICO LARSON Morbid (severe) obes ity due to excess calories E66.01 ; BMI 40.0-44.9, adult Z68.41 ; Type 2 diabetes mellitus without complication, without long-term current use of insulin E11.9 ; PCOS (polycystic ovarian syndrome) E28.2 and History of gestational diabetes Z86.32 [place] [address] 11/28/2023 NICO LARSON Type 2 diabetes mellitus without complication, without long-term current use of insulin E11.9 ; PCOS (polycystic ovarian syndrome) E28.2 ; Other obesity due to excess calories E66.09 and Body mass index [BMI] 37.0-37.9, adult Z68.37 [place] [address] 05/10/2024 NICO MARSHA Other obesity due to excess calories E66.09 ; BMI 33.0-33.9,adult Z68.33 ; Dietary counseling and surveillance Z71.3 ; Type 2 diabetes mellitus without complication, without long-term current use of insulin E11.9 and PCOS (polycystic ovarian syndrome) E28.2 [place] [address] 07/12/2024 NICO LARSON Other obesity due to excess calories E66.09 ; BMI 33.0-33.9,adult Z68.33 ; Dietary counseling and surveillance Z71.3 ; Type 2 diabetes mellitus without complication, without long-term current use of insulin E11.9 and PCOS (polycystic ovarian syndrome) E28.2 [facility] [address] 08/09/2024 JEAN PIERRE NELSONHAM Obesity (BMI 30-39.9 ) E66.9 ; BMI 33.0-33.9,adult Z68.33 ; Type 2 diabetes mellitus without complication, without long-term current use of insulin E11.9 ; PCOS (polycystic ovarian syndrome) E28.2 ; Hyperlipidemia, unspecified hyperlipidemia type E78.5 and Nutritional counseling Z71.3 [place] [address] 10/31/2023 JORDIN MARRERO [facility] [address] 01/10/2024 NICO LARSON ASSESSMENTS Encounter Date Diagnosis Assessment Notes Treatment Notes Treatment Clinical Notes Section Notes 09/30/2023 Morbid (severe) obesity due to excess calories (ICD-10 - E66.01) Total time spent today was 60 minutes of which greater than 50% was spent on coordinating and counseling Given diabetic state and morbid obesity, History of PCOS dual incretin mounjaro therapy is a great option for her Prescription sent for mounjaro 2.5 mg We will be more than happy to speak to her primary care provider if warranted We are a board certified obesity and weight management practice Patient has trialed behavioral modification, dietary restrictions and exercise for a minimum of 6 months The most recent [place] [employer] of clinical endocrinologists and [place] [employer] guidelines recommend patients who have overweight BMI or obesity BMI, who also have metabolic syndrome, prediabetes, or at risk of developing type 2 diabetes should aim for a weight loss goal of at least 10% of the baseline body weight Patient counseled regarding effects of GLP/GIP-1 agonists, and other FDA approved wgt loss meds with regards to a multifactorial approach of weight loss as mentioned above and not solely appetite suppression. We have discussed the mechanism of GLP-1's/GIP, dual incretins I think this would be fantastic option for her given her metabolic workup with and body composition We have discussed the risks and benefits and side effects including/and not limited to Sarcopenia, intestinal obstruction, constipation, nausea, lethargy, headache Discussed importance of protein consumption for muscle maintenance as well as strength and resistance training ,probiotics, B12 complex biotin , iron and other nutrients, To help avoid telogen effluvium There is no history of medullary thyroid cancer or multiple endocrine neoplasia There is also no history of cardiovascular disease, palpitations, or arrhythmias In the setting of potential stimulant/amphetamin e use such as phentermine We have also discussed risks and benefits, and the use of compounded medications to help offset the national shortages as well as financial implications vs trade name drugs GLP must be discontinued upon initiation We have discussed the lifelong requirement of nutritional supplementation And adherence to an exercise regimen as well as importance of follow-up The patient understands and agrees Patient has been found to be obese with a BMI of (40). Patient has class (3) obesity. Patient was reassured and welcomed to the [...] regimen as well as importance of dietary f/u Patient was educated on the replacement products [...] track activity level. Consider using apps like [employer], myfitnesspal, lose it, stick as needed for self-monitoring and weight management. Consider group exercises. Consider hiring a employment trainer. Regular exercise is napier to sustainable [...] and includes phentermine, Topamax,Qsymia, contrave, belviq and saxenda, wegovy All prescription medications could have side effects [...] counseling and psychiatry and Dr Yuan at [facility]. We would like to cover regular topics [...] software and direct typing Please excuse inadvertent salt operator or typing errors, or uncorrected word substitutions Although every attempt has been made by the provider to proofread this document, occasional misspellings and typographical errors may still be present Due to the previous pandemic, and the use of personal protective equipment (PPE) This may decrease voice recognition accuracy Inadvertent salt operator errors may occur 09/30/2023 BMI 40.0-44.9, adult (ICD-10 - Z68.41) Total time spent today was 60 minutes of which greater than 50% was spent on coordinating and counseling Given diabetic state and morbid obesity, History of PCOS dual incretin mounjaro therapy is a great option for her Prescription sent for mounjaro 2.5 mg We will be more than happy to speak to her primary care provider if warranted We are a board certified obesity and weight management practice Patient has trialed behavioral modification, dietary restrictions and exercise for a minimum of 6 months The most recent [place] [employer] of clinical endocrinologists and [place] [employer]in[employer] guidelines recommend patients who have overweight BMI or obesity BMI, who also have metabolic syndrome, prediabetes, or at risk of developing type 2 diabetes should aim for a weight loss goal of at least 10% of the baseline body weight Patient counseled regarding effects of GLP/GIP-1 agonists, and other FDA approved wgt loss meds with regards to a multifactorial approach of weight loss as mentioned above and not solely appetite suppression. We have discussed the mechanism of GLP-1's/GIP, dual incretins I think this would be fantastic option for her given her metabolic workup with and body composition We have discussed the risks and benefits and side effects including/and not limited to Sarcopenia, intestinal obstruction, constipation, nausea, lethargy, headache Discussed importance of protein consumption for muscle maintenance as well as strength and resistance training ,probiotics, B12 complex biotin , iron and other nutrients, To help avoid telogen effluvium There is no history of medullary thyroid cancer or multiple endocrine neoplasia There is also no history of cardiovascular disease, palpitations, or arrhythmias In the setting of potential stimulant/amphetamin e use such as phentermine We have also discussed risks and benefits, and the use of compounded medications to help offset the national shortages as well as financial implications vs trade name drugs GLP must be discontinued upon initiation We have discussed the lifelong requirement of nutritional supplementation And adherence to an exercise regimen as well as importance of follow-up The patient understands and agrees Patient has been found to be obese with a BMI of (40). Patient has class (3) obesity. Patient was reassured and welcomed to the [...] regimen as well as importance of dietary f/u Patient was educated on the replacement products [...] track activity level. Consider using apps like [employer], [employer], lose it, stick as needed for self-monitoring and weight management. Consider group exercises. Consider hiring a employment trainer. Regular exercise is napier to sustainable [...] and includes phentermine, Topamax,Qsymia, contrave, belviq and saxenda, wegovy All prescription medications could have side effects [...] counseling and psychiatry and Dr Yuan at [facility]. We would like to cover regular topics [...] software and direct typing Please excuse inadvertent salt operator or typing errors, or uncorrected word substitutions Although every attempt has been made by the provider to proofread this document, occasional misspellings and typographical errors may still be present Due to the previous pandemic, and the use of personal protective equipment (PPE) This may decrease voice recognition accuracy Inadvertent salt operator errors may occur 11/28/2023 Type 2 diabetes mellitus without complication, without long-term current use of insulin (ICD-10 - E11.9) #Weight Management 11/28/2023 She is thriving on dual incretin therapy Increase Mounjaro to 5 mg Updated in office A1c today much improved at 6.0, previously 7.9 Total time spent today was 30 minutes of which greater than 50% was spent on coordinating and counseling Patient has been found to be obese with a BMI of (30). Patient has class (1) obesity. We are a board certified obesity and weight management practice Patient has trialed behavioral modification, dietary restrictions and exercise for a minimum of 6 months The most recent [place] [employer] of clinical endocrinologists and [place] [employer]in[employer] guidelines recommend patients who [...] or arrhythmias In the setting of potential stimulant/amphetamin e use such as phentermine We have also [...] track activity level. Consider using apps like [employer], [employer], lose it, stick as needed for self-monitoring and weight management. Consider group exercises. Consider hiring a employment trainer. Regular exercise is napier to sustainable [...] counseling and psychiatry and Dr Yuan at [facility]. We would like to cover regular topics [...] software and direct typing Please excuse inadvertent salt operator or typing errors, or uncorrected word substitutions Although every attempt has been made by the provider to proofread this document, occasional misspellings and typographical errors may still be present Due to the previous pandemic, and the use of personal protective equipment (PPE) This may decrease voice recognition accuracy Inadvertent salt operator errors may occur 01/11/2024 Type 2 diabetes mellitus without complication, without long-term current use of insulin (ICD-10 - E11.9) #Weight Management 01/11/2024 She is thriving on dual incretin therapy Increase Mounjaro to 5 mg Updated in office A1c today much improved at 6.0, previously 7.9 Total time spent today was 30 minutes of which greater than 50% was spent on coordinating and counseling Patient has been found to be obese with a BMI of (30). Patient has class (1) obesity. We are a board certified obesity and weight management practice Patient has trialed behavioral modification, dietary restrictions and exercise for a minimum of 6 months The most recent [place] [employer] of clinical endocrinologists and [place] [employer] end[employer]in[employer] guidelines recommend patients who [...] or arrhythmias In the setting of potential stimulant/amphetamin e use such as phentermine We have also [...] track activity level. Consider using apps like [employer], [employer], lose it, stick as needed for self-monitoring and weight management. Consider group exercises. Consider hiring a employment trainer. Regular exercise is napier to sustainable [...] counseling and psychiatry and Dr Yuan at [facility]. We would like to cover regular topics [...] software and direct typing Please excuse inadvertent salt operator or typing errors, or uncorrected word substitutions Although every attempt has been made by the provider to proofread this document, occasional misspellings and typographical errors may still be present Due to the previous pandemic, and the use of personal protective equipment (PPE) This may decrease voice recognition accuracy Inadvertent salt operator errors may occur 05/10/2024 Other obesity due to excess calories [...] minimum of 6 months The most recent [place] [employer] of clinical endocrinologists and [place] [employer] end[employer]in[employer] guidelines recommend patients who [...] or arrhythmias In the setting of potential stimulant/amphetamin e use such as phentermine We have also [...] track activity level. Consider using apps like [employer], myfitnesspal, lose it, stick as needed for self-monitoring and weight management. Consider group exercises. Consider hiring a employment trainer. Regular exercise is napier to sustainable [...] counseling and psychiatry and Dr Yuan at [facility]. We would like to cover regular topics [...] software and direct typing Please excuse inadvertent salt operator or typing errors, or uncorrected word substitutions Although every attempt has been made by the provider to proofread this document, occasional misspellings and typographical errors may still be present Due to the previous pandemic, and the use of personal protective equipment (PPE) This may decrease voice recognition accuracy Inadvertent salt operator errors may occur 05/10/2024 BMI 33.0-33.9,adult (ICD-10 [...] minimum of 6 months The most recent [place] [employer] of clinical endocrinologists and [place] [employer] endocrin[employer] guidelines recommend patients who [...] or arrhythmias In the setting of potential stimulant/amphetamin e use such as phentermine We have also [...] track activity level. Consider using apps like [employer], [employer], lose it, stick as needed for self-monitoring and weight management. Consider group exercises. Consider hiring a employment trainer. Regular exercise is napier to sustainable [...] counseling and psychiatry and Dr Yuan at [facility]. We would like to cover regular topics [...] software and direct typing Please excuse inadvertent salt operator or typing errors, or uncorrected word substitutions Although every attempt has been made by the provider to proofread this document, occasional misspellings and typographical errors may still be present Due to the previous pandemic, and the use of personal protective equipment (PPE) This may decrease voice recognition accuracy Inadvertent salt operator errors may occur 07/12/2024 Other obesity due to excess calories (ICD-10 - E66.09) #Weight Management 07/12/2024 _update labs @[facility] She is thriving on dual incretin therapy Increase Mounjaro to 7.5 mg Updated hemoglobin A1c euglycemic today at [...] minimum of 6 months The most recent [place] [employer] of clinical endocrinologists and [place] [employer]in[employer] guidelines recommend patients who [...] mentioned above and not solely appetite suppression. Of note, some information is being carried forward from prior records for informational purposes only and is being cited so that efficiency, safety and quality of the patient's care is not compromised This note was prepared using voice recognition software and direct typing Please excuse inadvertent salt operator or typing errors, or uncorrected word substitutions Although every attempt has been made by the provider to proofread this document, occasional misspellings and typographical errors may still be present Due to the previous pandemic, and the use of personal protective equipment (PPE) This may decrease voice recognition accuracy Inadvertent salt operator errors may occur 07/12/2024 BMI 33.0-33.9,adult (ICD-10 - Z68.33) #Weight Management 07/12/2024 _update labs @[facility] She is thriving on dual incretin therapy Increase Mounjaro to 7.5 mg Updated hemoglobin A1c euglycemic today at [...] minimum of 6 months The most recent [place] [employer] of clinical endocrinologists and [place] [employer] end[employer]in[employer] guidelines recommend patients who [...] mentioned above and not solely appetite suppression. Of note, some information is being carried forward from prior records for informational purposes only and is being cited so that efficiency, safety and quality of the patient's care is not compromised This note was prepared using voice recognition software and direct typing Please excuse inadvertent salt operator or typing errors, or uncorrected word substitutions Although every attempt has been made by the provider to proofread this document, occasional misspellings and typographical errors may still be present Due to the previous pandemic, and the use of personal protective equipment (PPE) This may decrease voice recognition accuracy Inadvertent salt operator errors may occur 08/09/2024 Obesity (BMI 30-39.9) (ICD-10 - E66.9) [...] reviewed. Dictation completed with the use of [employer] voice recognition software, prone to medical misidentifications [...] reviewed. Dictation completed with the use of [employer] voice recognition software, prone to medical misidentifications [...] reviewed. Dictation completed with the use of [employer] voice recognition software, prone to medical misidentifications and grammatical errors. All errors are unintentional. Although the practitioner does try to identify and correct errors, some may be present. Please do not hesitate to contact the practitioner for clarification. Total time spent was 25 minutes with >50% on coordination of care and patient education. 07/12/2024 Dietary counseling and surveillance (ICD-10 - Z71.3) #Weight Management 07/12/2024 _update labs @[facility] She is thriving on dual incretin therapy Increase Mounjaro to 7.5 mg Updated hemoglobin A1c euglycemic today at [...] minimum of 6 months The most recent [place] [employer] of clinical endocrinologists and [place] [employer] end[employer]in[employer] guidelines recommend patients who [...] mentioned above and not solely appetite suppression. Of note, some information is being carried forward from prior records for informational purposes only and is being cited so that efficiency, safety and quality of the patient's care is not compromised This note was prepared using voice recognition software and direct typing Please excuse inadvertent salt operator or typing errors, or uncorrected word substitutions Although every attempt has been made by the provider to proofread this document, occasional misspellings and typographical errors may still be present Due to the previous pandemic, and the use of personal protective equipment (PPE) This may decrease voice recognition accuracy Inadvertent salt operator errors may occur 05/10/2024 Dietary counseling and [...] minimum of 6 months The most recent [place] [employer] of clinical endocrinologists and [place] [employer] end[employer]in[employer] guidelines recommend patients who [...] or arrhythmias In the setting of potential stimulant/amphetamin e use such as phentermine We have also [...] track activity level. Consider using apps like [employer], myfitnesspal, lose it, stick as needed for self-monitoring and weight management. Consider group exercises. Consider hiring a employment trainer. Regular exercise is napier to sustainable [...] counseling and psychiatry and Dr Yuan at [facility]. We would like to cover regular topics [...] software and direct typing Please excuse inadvertent salt operator or typing errors, or uncorrected word substitutions Although every attempt has been made by the provider to proofread this document, occasional misspellings and typographical errors may still be present Due to the previous pandemic, and the use of personal protective equipment (PPE) This may decrease voice recognition accuracy Inadvertent salt operator errors may occur 01/11/2024 PCOS (polycystic ovarian syndrome) (ICD-10 - E28.2) #Weight Management 01/11/2024 She is thriving on dual incretin therapy Increase Mounjaro to 5 mg Updated in office A1c today much improved at 6.0, previously 7.9 Total time spent today was 30 minutes of which greater than 50% was spent on coordinating and counseling Patient has been found to be obese with a BMI of (30). Patient has class (1) obesity. We are a board certified obesity and weight management practice Patient has trialed behavioral modification, dietary restrictions and exercise for a minimum of 6 months The most recent [place] [employer] of clinical endocrinologists and [place] [employer]in[employer] guidelines recommend patients who [...] or arrhythmias In the setting of potential stimulant/amphetamin e use such as phentermine We have also [...] track activity level. Consider using apps like [employer], myfitnesspal, lose it, stick as needed for self-monitoring and weight management. Consider group exercises. Consider hiring a employment trainer. Regular exercise is napier to sustainable [...] counseling and psychiatry and Dr Yuan at [facility]. We would like to cover regular topics [...] software and direct typing Please excuse inadvertent salt operator or typing errors, or uncorrected word substitutions Although every attempt has been made by the provider to proofread this document, occasional misspellings and typographical errors may still be present Due to the previous pandemic, and the use of personal protective equipment (PPE) This may decrease voice recognition accuracy Inadvertent salt operator errors may occur 11/28/2023 PCOS (polycystic ovarian syndrome) (ICD-10 - E28.2) #Weight Management 11/28/2023 She is thriving on dual incretin therapy Increase Mounjaro to 5 mg Updated in office A1c today much improved at 6.0, previously 7.9 Total time spent today was 30 minutes of which greater than 50% was spent on coordinating and counseling Patient has been found to be obese with a BMI of (30). Patient has class (1) obesity. We are a board certified obesity and weight management practice Patient has trialed behavioral modification, dietary restrictions and exercise for a minimum of 6 months The most recent [place] [employer]ocrin[employer] and [place] [employer] guidelines recommend patients who [...] or arrhythmias In the setting of potential stimulant/amphetamin e use such as phentermine We have also [...] track activity level. Consider using apps like [employer], [employer], lose it, stick as needed for self-monitoring and weight management. Consider group exercises. Consider hiring a employment trainer. Regular exercise is napier to sustainable [...] counseling and psychiatry and Dr Yuan at [facility]. We would like to cover regular topics [...] software and direct typing Please excuse inadvertent salt operator or typing errors, or uncorrected word substitutions Although every attempt has been made by the provider to proofread this document, occasional misspellings and typographical errors may still be present Due to the previous pandemic, and the use of personal protective equipment (PPE) This may decrease voice recognition accuracy Inadvertent salt operator errors may occur 09/30/2023 Type 2 diabetes mellitus without complication, without long-term current use of insulin (ICD-10 - E11.9) Total time spent today was 60 minutes of which greater than 50% was spent on coordinating and counseling Given diabetic state and morbid obesity, History of PCOS dual incretin mounjaro therapy is a great option for her Prescription sent for mounjaro 2.5 mg We will be more than happy to speak to her primary care provider if warranted We are a board certified obesity and weight management practice Patient has trialed behavioral modification, dietary restrictions and exercise for a minimum of 6 months The most recent [place] [employer]ocrin[employer] and [place] [employer] guidelines recommend patients who have overweight BMI or obesity BMI, who also have metabolic syndrome, prediabetes, or at risk of developing type 2 diabetes should aim for a weight loss goal of at least 10% of the baseline body weight Patient counseled regarding effects of GLP/GIP-1 agonists, and other FDA approved wgt loss meds with regards to a multifactorial approach of weight loss as mentioned above and not solely appetite suppression. We have discussed the mechanism of GLP-1's/GIP, dual incretins I think this would be fantastic option for her given her metabolic workup with and body composition We have discussed the risks and benefits and side effects including/and not limited to Sarcopenia, intestinal obstruction, constipation, nausea, lethargy, headache Discussed importance of protein consumption for muscle maintenance as well as strength and resistance training ,probiotics, B12 complex biotin , iron and other nutrients, To help avoid telogen effluvium There is no history of medullary thyroid cancer or multiple endocrine neoplasia There is also no history of cardiovascular disease, palpitations, or arrhythmias In the setting of potential stimulant/amphetamin e use such as phentermine We have also discussed risks and benefits, and the use of compounded medications to help offset the national shortages as well as financial implications vs trade name drugs GLP must be discontinued upon initiation We have discussed the lifelong requirement of nutritional supplementation And adherence to an exercise regimen as well as importance of follow-up The patient understands and agrees Patient has been found to be obese with a BMI of (40). Patient has class (3) obesity. Patient was reassured and welcomed to the [...] regimen as well as importance of dietary f/u Patient was educated on the replacement products [...] track activity level. Consider using apps like [employer], [employer], lose it, stick as needed for self-monitoring and weight management. Consider group exercises. Consider hiring a employment trainer. Regular exercise is napier to sustainable [...] and includes phentermine, Topamax,Qsymia, contrave, belviq and saxenda, wegovy All prescription medications could have side effects [...] counseling and psychiatry and Dr Yuan at [facility]. We would like to cover regular topics [...] software and direct typing Please excuse inadvertent salt operator or typing errors, or uncorrected word substitutions Although every attempt has been made by the provider to proofread this document, occasional misspellings and typographical errors may still be present Due to the previous pandemic, and the use of personal protective equipment (PPE) This may decrease voice recognition accuracy Inadvertent salt operator errors may occur 09/30/2023 PCOS (polycystic ovarian syndrome) (ICD-10 - E28.2) Total time spent today was 60 minutes of which greater than 50% was spent on coordinating and counseling Given diabetic state and morbid obesity, History of PCOS dual incretin mounjaro therapy is a great option for her Prescription sent for mounjaro 2.5 mg We will be more than happy to speak to her primary care provider if warranted We are a board certified obesity and weight management practice Patient has trialed behavioral modification, dietary restrictions and exercise for a minimum of 6 months The most recent [place] [employer]ocrin[employer] and [place] [employer] guidelines recommend patients who have overweight BMI or obesity BMI, who also have metabolic syndrome, prediabetes, or at risk of developing type 2 diabetes should aim for a weight loss goal of at least 10% of the baseline body weight Patient counseled regarding effects of GLP/GIP-1 agonists, and other FDA approved wgt loss meds with regards to a multifactorial approach of weight loss as mentioned above and not solely appetite suppression. We have discussed the mechanism of GLP-1's/GIP, dual incretins I think this would be fantastic option for her given her metabolic workup with and body composition We have discussed the risks and benefits and side effects including/and not limited to Sarcopenia, intestinal obstruction, constipation, nausea, lethargy, headache Discussed importance of protein consumption for muscle maintenance as well as strength and resistance training ,probiotics, B12 complex biotin , iron and other nutrients, To help avoid telogen effluvium There is no history of medullary thyroid cancer or multiple endocrine neoplasia There is also no history of cardiovascular disease, palpitations, or arrhythmias In the setting of potential stimulant/amphetamin e use such as phentermine We have also discussed risks and benefits, and the use of compounded medications to help offset the national shortages as well as financial implications vs trade name drugs GLP must be discontinued upon initiation We have discussed the lifelong requirement of nutritional supplementation And adherence to an exercise regimen as well as importance of follow-up The patient understands and agrees Patient has been found to be obese with a BMI of (40). Patient has class (3) obesity. Patient was reassured and welcomed to the [...] books called The Food Rules by Jarred Vetnura and Eat Fat Get Lean by Dr [...] regimen as well as importance of dietary f/u Patient was educated on the replacement products [...] track activity level. Consider using apps like [employer], [employer]fitnesspal, lose it, stick as needed for self-monitoring and weight management. Consider group exercises. Consider hiring a employment trainer. Regular exercise is napier to sustainable [...] and includes phentermine, Topamax,Qsymia, contrave, belviq and saxenda, wegovy All prescription medications could have side effects [...] counseling and psychiatry and Dr Yuan at [facility]. We would like to cover regular topics [...] software and direct typing Please excuse inadvertent salt operator or typing errors, or uncorrected word substitutions Although every attempt has been made by the provider to proofread this document, occasional misspellings and typographical errors may still be present Due to the previous pandemic, and the use of personal protective equipment (PPE) This may decrease voice recognition accuracy Inadvertent salt operator errors may occur 01/11/2024 Other obesity due to excess calories (ICD-10 - E66.09) #Weight Management 01/11/2024 She is thriving on dual incretin therapy Increase Mounjaro to 5 mg Updated in office A1c today much improved at 6.0, previously 7.9 Total time spent today was 30 minutes of which greater than 50% was spent on coordinating and counseling Patient has been found to be obese with a BMI of (30). Patient has class (1) obesity. We are a board certified obesity and weight management practice Patient has trialed behavioral modification, dietary restrictions and exercise for a minimum of 6 months The most recent [place] [employer]ocrinologists and [place] [employer] guidelines recommend patients who [...] or arrhythmias In the setting of potential stimulant/amphetamin e use such as phentermine We have also [...] track activity level. Consider using apps like [employer], [employer]fitnesspal, lose it, stick as needed for self-monitoring and weight management. Consider group exercises. Consider hiring a employment trainer. Regular exercise is napier to sustainable [...] counseling and psychiatry and Dr Yuan at [facility]. We would like to cover regular topics [...] software and direct typing Please excuse inadvertent salt operator or typing errors, or uncorrected word substitutions Although every attempt has been made by the provider to proofread this document, occasional misspellings and typographical errors may still be present Due to the previous pandemic, and the use of personal protective equipment (PPE) This may decrease voice recognition accuracy Inadvertent salt operator errors may occur 11/28/2023 Other obesity due to excess calories (ICD-10 - E66.09) #Weight Management 11/28/2023 She is thriving on dual incretin therapy Increase Mounjaro to 5 mg Updated in office A1c today much improved at 6.0, previously 7.9 Total time spent today was 30 minutes of which greater than 50% was spent on coordinating and counseling Patient has been found to be obese with a BMI of (30). Patient has class (1) obesity. We are a board certified obesity and weight management practice Patient has trialed behavioral modification, dietary restrictions and exercise for a minimum of 6 months The most recent [place] [employer] endocrinologists and [place] [employer] guidelines recommend patients who [...] or arrhythmias In the setting of potential stimulant/amphetamin e use such as phentermine We have also [...] track activity level. Consider using apps like [employer], [employer]fitnesspal, lose it, stick as needed for self-monitoring and weight management. Consider group exercises. Consider hiring a employment trainer. Regular exercise is napier to sustainable [...] counseling and psychiatry and Dr Yuan at [facility]. We would like to cover regular topics [...] software and direct typing Please excuse inadvertent salt operator or typing errors, or uncorrected word substitutions Although every attempt has been made by the provider to proofread this document, occasional misspellings and typographical errors may still be present Due to the previous pandemic, and the use of personal protective equipment (PPE) This may decrease voice recognition accuracy Inadvertent salt operator errors may occur 05/10/2024 Type 2 diabetes [...] minimum of 6 months The most recent [place] [employer] endocrinologists and [place] [employer] guidelines recommend patients who [...] or arrhythmias In the setting of potential stimulant/amphetamin e use such as phentermine We have also [...] track activity level. Consider using apps like [employer], [employer], lose it, stick as needed for self-monitoring and weight management. Consider group exercises. Consider hiring a employment trainer. Regular exercise is napier to sustainable [...] counseling and psychiatry and Dr Yuan at [facility]. We would like to cover regular topics [...] software and direct typing Please excuse inadvertent salt operator or typing errors, or uncorrected word substitutions Although every attempt has been made by the provider to proofread this document, occasional misspellings and typographical errors may still be present Due to the previous pandemic, and the use of personal protective equipment (PPE) This may decrease voice recognition accuracy Inadvertent salt operator errors may occur 07/12/2024 Type 2 diabetes mellitus without complication, without long-term current use of insulin (ICD-10 - E11.9) #Weight Management 07/12/2024 _update labs @[facility] She is thriving on dual incretin therapy Increase Mounjaro to 7.5 mg Updated hemoglobin A1c euglycemic today at [...] minimum of 6 months The most recent [place] [employer] endocrinologists and [place] [employer] guidelines recommend patients who [...] mentioned above and not solely appetite suppression. Of note, some information is being carried forward from prior records for informational purposes only and is being cited so that efficiency, safety and quality of the patient's care is not compromised This note was prepared using voice recognition software and direct typing Please excuse inadvertent salt operator or typing errors, or uncorrected word substitutions Although every attempt has been made by the provider to proofread this document, occasional misspellings and typographical errors may still be present Due to the previous pandemic, and the use of personal protective equipment (PPE) This may decrease voice recognition accuracy Inadvertent salt operator errors may occur 08/09/2024 PCOS (polycystic ovarian syndrome) (ICD-10 - [...] reviewed. Dictation completed with the use of [employer] voice recognition software, prone to medical misidentifications and grammatical errors. All errors are unintentional. Although the practitioner does try to identify and correct errors, some may be present. Please do not hesitate to contact the practitioner for clarification. Total time spent was 25 minutes with >50% on coordination of care and patient education. 07/12/2024 PCOS (polycystic ovarian syndrome) (ICD-10 - E28.2) #Weight Management 07/12/2024 _update labs @[facility] She is thriving on dual incretin therapy Increase Mounjaro to 7.5 mg Updated hemoglobin A1c euglycemic today at [...] minimum of 6 months The most recent [place] [employer] endocrinologists and [place] [employer] guidelines recommend patients who [...] mentioned above and not solely appetite suppression. Of note, some information is being carried forward from prior records for informational purposes only and is being cited so that efficiency, safety and quality of the patient's care is not compromised This note was prepared using voice recognition software and direct typing Please excuse inadvertent salt operator or typing errors, or uncorrected word substitutions Although every attempt has been made by the provider to proofread this document, occasional misspellings and typographical errors may still be present Due to the previous pandemic, and the use of personal protective equipment (PPE) This may decrease voice recognition accuracy Inadvertent salt operator errors may occur 08/09/2024 Hyperlipidemia, unspecified hyperlipidemia type (ICD-10 - [...] reviewed. Dictation completed with the use of [employer] voice recognition software, prone to medical misidentifications and grammatical errors. All errors are unintentional. Although the practitioner does try to identify and correct errors, some may be present. Please do not hesitate to contact the practitioner for clarification. Total time spent was 25 minutes with >50% on coordination of care and patient education. 05/10/2024 PCOS (polycystic ovarian syndrome) (ICD-10 - [...] minimum of 6 months The most recent [place] [employer] endocrinologists and [place] [employer] guidelines recommend patients who [...] or arrhythmias In the setting of potential stimulant/amphetamin e use such as phentermine We have also [...] track activity level. Consider using apps like [employer], [employer]fitnesspal, lose it, stick as needed for self-monitoring and weight management. Consider group exercises. Consider hiring a employment trainer. Regular exercise is napier to sustainable [...] counseling and psychiatry and Dr Yuan at [facility]. We would like to cover regular topics [...] software and direct typing Please excuse inadvertent salt operator or typing errors, or uncorrected word substitutions Although every attempt has been made by the provider to proofread this document, occasional misspellings and typographical errors may still be present Due to the previous pandemic, and the use of personal protective equipment (PPE) This may decrease voice recognition accuracy Inadvertent salt operator errors may occur 01/11/2024 Body mass index [BMI] 37.0-37.9, adult (ICD-10 - Z68.37) #Weight Management 01/11/2024 She is thriving on dual incretin therapy Increase Mounjaro to 5 mg Updated in office A1c today much improved at 6.0, previously 7.9 Total time spent today was 30 minutes of which greater than 50% was spent on coordinating and counseling Patient has been found to be obese with a BMI of (30). Patient has class (1) obesity. We are a board certified obesity and weight management practice Patient has trialed behavioral modification, dietary restrictions and exercise for a minimum of 6 months The most recent [place] [employer] of [employer] endocrinologists and [place] [employer] guidelines recommend patients who [...] or arrhythmias In the setting of potential stimulant/amphetamin e use such as phentermine We have also [...] track activity level. Consider using apps like [employer], [employer]fitnesspal, lose it, stick as needed for self-monitoring and weight management. Consider group exercises. Consider hiring a employment trainer. Regular exercise is napier to sustainable [...] counseling and psychiatry and Dr Yuan at [facility]. We would like to cover regular topics [...] software and direct typing Please excuse inadvertent salt operator or typing errors, or uncorrected word substitutions Although every attempt has been made by the provider to proofread this document, occasional misspellings and typographical errors may still be present Due to the previous pandemic, and the use of personal protective equipment (PPE) This may decrease voice recognition accuracy Inadvertent salt operator errors may occur 11/28/2023 Body mass index [BMI] 37.0-37.9, adult (ICD-10 - Z68.37) #Weight Management 11/28/2023 She is thriving on dual incretin therapy Increase Mounjaro to 5 mg Updated in office A1c today much improved at 6.0, previously 7.9 Total time spent today was 30 minutes of which greater than 50% was spent on coordinating and counseling Patient has been found to be obese with a BMI of (30). Patient has class (1) obesity. We are a board certified obesity and weight management practice Patient has trialed behavioral modification, dietary restrictions and exercise for a minimum of 6 months The most recent [place] [employer] of [employer] endocrinologists and [place] [employer] guidelines recommend patients who [...] or arrhythmias In the setting of potential stimulant/amphetamin e use such as phentermine We have also [...] track activity level. Consider using apps like [employer], [employer]fitnesspal, lose it, stick as needed for self-monitoring and weight management. Consider group exercises. Consider hiring a employment trainer. Regular exercise is napier to sustainable [...] counseling and psychiatry and Dr Yuan at [facility]. We would like to cover regular topics [...] software and direct typing Please excuse inadvertent salt operator or typing errors, or uncorrected word substitutions Although every attempt has been made by the provider to proofread this document, occasional misspellings and typographical errors may still be present Due to the previous pandemic, and the use of personal protective equipment (PPE) This may decrease voice recognition accuracy Inadvertent salt operator errors may occur 09/30/2023 History of gestational diabetes (ICD-10 - Z86.32) Total time spent today was 60 minutes of which greater than 50% was spent on coordinating and counseling Given diabetic state and morbid obesity, History of PCOS dual incretin mounjaro therapy is a great option for her Prescription sent for mounjaro 2.5 mg We will be more than happy to speak to her primary care provider if warranted We are a board certified obesity and weight management practice Patient has trialed behavioral modification, dietary restrictions and exercise for a minimum of 6 months The most recent [place] [employer] of [employer] endocrinologists and [place] [employer] guidelines recommend patients who have overweight BMI or obesity BMI, who also have metabolic syndrome, prediabetes, or at risk of developing type 2 diabetes should aim for a weight loss goal of at least 10% of the baseline body weight Patient counseled regarding effects of GLP/GIP-1 agonists, and other FDA approved wgt loss meds with regards to a multifactorial approach of weight loss as mentioned above and not solely appetite suppression. We have discussed the mechanism of GLP-1's/GIP, dual incretins I think this would be fantastic option for her given her metabolic workup with and body composition We have discussed the risks and benefits and side effects including/and not limited to Sarcopenia, intestinal obstruction, constipation, nausea, lethargy, headache Discussed importance of protein consumption for muscle maintenance as well as strength and resistance training ,probiotics, B12 complex biotin , iron and other nutrients, To help avoid telogen effluvium There is no history of medullary thyroid cancer or multiple endocrine neoplasia There is also no history of cardiovascular disease, palpitations, or arrhythmias In the setting of potential stimulant/amphetamin e use such as phentermine We have also discussed risks and benefits, and the use of compounded medications to help offset the national shortages as well as financial implications vs trade name drugs GLP must be discontinued upon initiation We have discussed the lifelong requirement of nutritional supplementation And adherence to an exercise regimen as well as importance of follow-up The patient understands and agrees Patient has been found to be obese with a BMI of (40). Patient has class (3) obesity. Patient was reassured and welcomed to the [...] regimen as well as importance of dietary f/u Patient was educated on the replacement products [...] track activity level. Consider using apps like [employer], [employer], lose it, stick as needed for self-monitoring and weight management. Consider group exercises. Consider hiring a employment trainer. Regular exercise is napier to sustainable [...] and includes phentermine, Topamax,Qsymia, contrave, belviq and saxenda, wegovy All prescription medications could have side effects [...] counseling and psychiatry and Dr Yuan at [facility]. We would like to cover regular topics [...] software and direct typing Please excuse inadvertent salt operator or typing errors, or uncorrected word substitutions Although every attempt has been made by the provider to proofread this document, occasional misspellings and typographical errors may still be present Due to the previous pandemic, and the use of personal protective equipment (PPE) This may decrease voice recognition accuracy Inadvertent salt operator errors may occur 08/09/2024 Nutritional counseling (ICD-10 - Z71.3) Ayleen [...] reviewed. Dictation completed with the use of [employer] voice recognition software, prone to medical misidentifications and grammatical errors. All errors are unintentional. Although the practitioner does try to identify and correct errors, some may be present. Please do not hesitate to contact the practitioner for clarification. Total time spent was 25 minutes with >50% on coordination of care and patient education. PLAN OF TREATMENT Pending Test Test Name Order Date LIPID PANEL, STANDARD 07/12/2024 COMPREHENSIVE METABOLIC PANEL 07/12/2024 CBC (INCLUDES DIFF/PLT) 07/12/2024 URINALYSIS, COMPLETE 07/12/2024 HEMOGLOBIN A1c 07/12/2024 TSH 07/12/2024 VITAMIN D,25-OH,TOTAL,IA 07/12/2024 Next Appt Details Provider Name:NICO LARSON, 09/17/2024 11:15:00 AM, [address] [facility], [facility] [address], [place], [address], Insurance Providers Payer Name Payer Address Payer Phone Subscriber Number Group Number Insured Name Patient Relationship to Insured Coverage Start Date Coverage End Date [facility] and [facility] [address] [place] [address] [id number] AYLEEN CARLSON Self - patient is the insured MEDICAL (GENERAL) HISTORY Medical History History ICD Code high blood pressure type II diabetes anxiety depression
--- OUTSIDE RECORDS SUMMARY | 2024-09-13 13:00 | XMS_ITS ---
Author Organization [facility] Address [address] [place] [address] Care Team Providers Care Joint Cutter Machine Name Role Phone DAE YOUNGBLOOD Primary Care Provider NICO Smith Unavailable [phone] ALLERGIES No Known Allergies REASON FOR VISIT Pt seen in office for wt mgt f/u visit with HAIM. MEDICATIONS Medication SIG (Take, Route, Frequency, Duration) Notes Start Date End Date Status busPIRone HCl 15 MG 1 tablet Orally Twic e a day Active PARoxetine HCl 30 MG 1 tablet in the mor suzanne Orally Once a day Active Mounjaro 5 MG/0.5ML ADMINISTER 5 MG UNDE R THE SKIN WEEKLY for 28 Active Mounjaro 7.5 MG/0.5ML 7.5mg Subcutaneous weekly for 28 days 07/12/2024 Active Losartan Potassium-HCTZ 50-12.5 MG 1 tablet Orally Once a day Active Mounjaro 5 MG/0.5ML 5mg Subcutaneous wee kly for 30 days Active Mounjaro 2.5 MG/0.5ML 2.5mg Subcutaneous weekly for 30 days Not-Taking ZyrTEC Allergy 10 MG 1 tablet Orally Onc e a day Active VITAL SIGNS Heart Rate 86 /min 07/12/2024 Blood pressure systolic 136 mm Hg 07/12/20 Blood pressure diastolic 84 mm Hg 024 Weight 186 lbs 07/12/2024 BMI 34.02 kg/m2 07/12/2024 Height 62 in 07/12/2024 Oximetry 96 % 07/12/2024 Encounters Encounter Location Date Provider Diagnosis [facility] [address] [facility] [address] [place] [address] 07/12/2024 NICO LARSON Other obesity due to excess calories E66.09 ; BMI 33.0-33.9,adult Z68.33 ; Dietary counseling and surveillance Z71.3 ; Type 2 diabetes mellitus without complication, without long-term current use of insulin E11.9 and PCOS (polycystic ovarian syndrome) E28.2 ASSESSMENTS Encounter Date Diagnosis Assessment Notes Treatment Notes Treatment Clinical Notes Section Notes 07/12/2024 Other obesity due to excess calories [...] minimum of 6 months The most recent [place] [employer] of clinical endocrinologists and [employer] [employer] guidelines recommend patients who [...] software and direct typing Please excuse inadvertent coat presser or typing errors, or uncorrected word substitutions Although every attempt has been made by the provider to proofread this document, occasional misspellings and typographical errors may still be present Due to the previous pandemic, and the use of personal protective equipment (PPE) This may decrease voice recognition accuracy Inadvertent coat presser errors may occur 07/12/2024 BMI 33.0-33.9,adult (ICD-10 [...] minimum of 6 months The most recent [place] [employer] of clinical endocrinologists and [place] [employer] guidelines recommend patients who [...] software and direct typing Please excuse inadvertent coat presser or typing errors, or uncorrected word substitutions Although every attempt has been made by the provider to proofread this document, occasional misspellings and typographical errors may still be present Due to the previous pandemic, and the use of personal protective equipment (PPE) This may decrease voice recognition accuracy Inadvertent coat presser errors may occur 07/12/2024 Dietary counseling and surveillance (ICD-10 - [...] minimum of 6 months The most recent [place] [employer] of clinical endocrinologists and [place] [employer]in[employer] guidelines recommend patients who [...] software and direct typing Please excuse inadvertent coat presser or typing errors, or uncorrected word substitutions Although every attempt has been made by the provider to proofread this document, occasional misspellings and typographical errors may still be present Due to the previous pandemic, and the use of personal protective equipment (PPE) This may decrease voice recognition accuracy Inadvertent coat presser errors may occur 07/12/2024 Type 2 diabetes [...] minimum of 6 months The most recent [place] [employer] of clinical endocrinologists and [employer] [employer]in[employer] guidelines recommend patients who [...] software and direct typing Please excuse inadvertent coat presser or typing errors, or uncorrected word substitutions Although every attempt has been made by the provider to proofread this document, occasional misspellings and typographical errors may still be present Due to the previous pandemic, and the use of personal protective equipment (PPE) This may decrease voice recognition accuracy Inadvertent coat presser errors may occur 07/12/2024 PCOS (polycystic ovarian syndrome) (ICD-10 - [...] minimum of 6 months The most recent [place] [employer] of clinical endocrinologists and [employer] [employer]in[employer] guidelines recommend patients who [...] software and direct typing Please excuse inadvertent coat presser or typing errors, or uncorrected word substitutions Although every attempt has been made by the provider to proofread this document, occasional misspellings and typographical errors may still be present Due to the previous pandemic, and the use of personal protective equipment (PPE) This may decrease voice recognition accuracy Inadvertent coat presser errors may occur PLAN OF TREATMENT Medication Medication Name Sig Start Date Stop Date Notes Mounjaro 7.5 MG/0.5ML 7.5mg Subcutaneous weekly for 28 days 07/12/2024 Mounjaro 5 MG/0.5ML 5mg Subcutaneous weekly for 30 days Pending Test Test Name Order Date LIPID PANEL, STANDARD 07/12/2024 COMPREHENSIVE METABOLIC PANEL 07/12/2024 CBC (INCLUDES DIFF/PLT) 07/12/2024 URINALYSIS, COMPLETE 07/12/2024 HEMOGLOBIN A1c 07/12/2024 TSH 07/12/2024 VITAMIN D,25-OH,TOTAL,IA 07/12/2024 Next Appt Details Provider Name:NICO LARSON, 09/17/2024 11:15:00 AM, [address], [address], [place], [address], Progress Notes * IRWIN CARLSONOB:1970 (53 yo F)Acc No.[id number]:07/12/2024 Patient:??TRISH CARLSON Provider:??NICO LARSON NP :1970?Age:53 Y?Sex:Fe male Date:07/12/2024 Address:[address] [place], [place] [id number] Pcp:DAE YOUNGBLOOD Subjective: * Chief Complaints: * ?1. Pt seen in office f or wt mgt f/u visit with HAIM.. * HPI: ?Constitutional:? Patient is here today for a weight management f/u visit ?Patient seen and examined. ?Full past medical history, social history, family history, ?allergies and current medications were reviewed and updated. ?Body composition analysis reviewed today ?#Weight Management ?07/12/2024 ?Tolerating Mounjaro 5mg. Injection days are Wednesdays. No s/e. ?Reporting plateu of weight loss and wants to increase Mounjaro to 7.5mg ?Eating well, limiting sugar intake. ?No regimented exercise currently. Active throughout day around the house. ?Did join the [employer] and is hoping to start going with son in the near future. 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 ?Diet: grab-and-go diet. no snacking, but portion control issues. Discussed increasing protein in diet ?Exercise: Currently not exercising however she is on her feet all day with house chores. Discussed strength training to increase muslce mass ?Non-smoker. Vape: cannabis ?ETOH use: none ?Illicit drug use: none. * ROS:?All Other Systems:?Review of Systems (ROS)??All others negative except those mentioned in HPI.? * Medical History:??High blood pressure, type II diabetes, Anxiety, Depression. * Surgical History:??Denies Pa st Surgical History. * Hospitalization/Major Diagno stic Procedure:??Denies Past Hospitalization. * Family History:??Father: dec eased.??Mother: alive.?? father - stroke mother- breast cancer, hypertension, diabetes and stroke. * Social History:?Pt quit tobacco products in 1999 ???also quit alcohol use in 2021 ???admits to daily marijuana use. * Medications:??Taking ZyrTEC Allergy 10 MG Tablet 1 tablet Orally Once a day , Taking Losartan Potassium-HCTZ 50-12.5 MG Tablet 1 tablet Orally Once a day , Taking busPIRone HCl 15 MG Tablet 1 tablet Orally Twice a day , Taking PARoxetine HCl 30 MG Tablet 1 tablet in the morning Orally Once a day , Taking Mounjaro 5 MG/0.5ML Solution Pen-injector ADMINISTER 5 MG UNDER THE SKIN WEEKLY , Not-Taking Mounjaro 2.5 MG/0.5ML Solution Pen-injector 2.5mg Subcutaneous weekly , Medication List reviewed and reconciled with the patient * Allergies:??N.K.D.A. Objective: * Vitals:??HR:86/min, BP:136/8 4mm Hg, Wt:186lbs, BMI:34.02Index, Ht: 62 in, Oxygen sat %:96%. * Examination: ?General Examination: ?GENERAL APPEARANCE:??in no [...] (polycystic ovarian syndrome) - E28.2?? #Weight Management 07/12/2024 _update labs @[facility] She [...] minimum of 6 months The most recent [place] [employer] of clinical endocrinologists and [place] [employer] of endocrinology guidelines recommend patients who [...] software and direct typing Please excuse inadvertent coat presser or typing errors, or uncorrected word substitutions Although every attempt has been made by the provider to proofread this document, occasional misspellings and typographical errors may still be present Due to the previous pandemic, and the use of personal protective equipment (PPE) This may decrease voice recognition accuracy Inadvertent coat presser errors may occur. Plan: * Treatment: 2.??Type 2 diabetes mellitus without complication, without long-term current use of insulin?? Start Mounjaro Solution Pen-injector, 5 MG/0.5ML, 5mg, Subcutaneous, weekly, 30 days, 4 Pen Needle, Refills 3.? * Labs:?? * ?Lab: HEMOGLOBIN A1 c ?Lab: VITAMIN D,25- OH,TOTAL,IA ?Lab: URINALYSIS, C OMPLETE ?Lab: COMPREHENSIVE METABOLIC PANEL ?Lab: CBC (INCLUDES DIFF/PLT) ?Lab: TSH ?Lab: LIPID PANEL, STANDARD * Procedure Codes:??G0447 FCE- FCE BEHAVRL CNSL OBESITY 15 MIN, Modifiers: 59 * Images: Billing Information: * Visit Code:?? 35584 Office Visit, Est Pt., Level 4. * Procedure Codes:?? G0447 FCE-FCE BEHAVRL CNSL OBESITY 15 MIN. Modifiers: 59 * Sign off status: Completed true * Provider:??NICO LARSON NP Date:??06/20 History and Physical Notes * HPI (History of Present Illness) Category Sub-Category Detail Notes Category Not es Constitutional Patient is here today for a weight management f/u visit Patient seen and examined. Full past medical history, social history, family history, allergies and current medications were reviewed and updated. Body composition analysis reviewed today #Weight Management 07/12/2024 Tolerating Mounjaro 5mg. Injection days are Wednesdays. No s/e. Reporting plateu of weight loss and wants to increase Mounjaro to 7.5mg Eating well, limiting sugar intake. No regimented exercise currently. Active throughout day around the house. Did join the [employer] and is hoping to start going with son in the near future. 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 Diet: grab-and-go diet. no snacking, but portion control issues. Discussed increasing protein in diet Exercise: Currently not exercising however she is on her feet all day with house chores. Discussed strength training to increase muslce mass Non-smoker. Vape: cannabis ETOH use: none Illicit drug use: none Examination Category Sub-Category Detail Notes Category Not es General Examination GENERAL APPEARANCE: in no ac aurora distress, well developed, well nourished HEAD: normocephalic, [...]
--- NOTE | 2024-09-13 13:14 | MHC.OFFVIS ---
Vital Signs 09/13/24 13:17 Height 5 ft 2 in Weight 183 lb 6.793 oz BMI 33.5 BP 136/78 Blood Pressure Location Lt brachial Position Sitting Pulse 66 Pulse Source Pulse Oximeter Pulse Oximetry (%) 100 Oxygen Delivery Method Room Air Intake Visit Reasons: Raynauds (ATC recs on file) Intake Note: Patient presents for follow up on Raynaud's. Allergies No Known Allergies Allergy (Verified 09/13/24 13:18) HPI HPI Raynauds (ATC recs on file): Details: Raynauds is slightly active. She has mild episodes when she walks bare feet on her tile at home. She wears gloves when she is out in the cold. No recurrence of joint swelling. She denies fevers, oral ulcers, rash, urinary symptoms, joint pain, joint stiffness. [facility] Medical History (Updated 09/13/24 @ 14:37 by Devin Zhang MD) Anxiety Raynaud disease Surgical History (Updated 09/13/24 @ 13:23 by Luba Mason CMA) History of removal of laparoscopic gastric banding device Hx of laparoscopic gastric banding Review of Systems Const All systems reviewed & are unremarkable except as noted in HPI and below Physical Exam Vital Signs: Last Vital Signs Pulse 66 09/13/24 13:17 BP 136/78 09/13/24 13:17 Pulse Ox 100 09/13/24 13:17 Oxygen Delivery Method Room Air 09/13/24 13:17 BMI result Body Mass Index 33.5 Const Other: General: Comfortable CVS: RRR Respiratory: clear to auscultation bilaterally. Good respiratory effort Skin: No lesions seen. No digital ulcerations. A few of her toes have turned jones blue when her socks are removed. MSK: No tenderness of any joints. No synovitis. Good range of motion of upper extremities and lower extremities. Assessment & Plan Assessment & Plan (1) Raynaud disease without gangrene: Comment: Conservatively managed. Code(s): I73.00 - Raynaud's syndrome without gangrene Category: Medical Plan: Discussed conservative management. 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 [facility] reviewed. Code(s): M12.30 - Palindromic rheumatism, unspecified site Category: Medical Plan: She will use naproxen OTC 1-2 tablets twice a day if she has recurrence of joint pain and swelling and will call office with clinical update Return to clinic in 1 year sooner if needed Coding Level of Care Code Est Pt Level 4 (12037) Complex EM visit Add On G2211 Diagnoses Raynaud disease without gangrene I73.00 Palindromic rheumatism M12.30
[2024-09-13 13:17] VITALS: BP 136/78; PULSE 66; O2SAT 100; BMI 33.5
== END 2024-09-13 13:46 | disposition home or self-care (01) ==
PROVIDERS: PCP Internal Medicine; Visit Provider Internal Medicine Rheumatology
DX: I73.00 Raynaud's syndrome without gangrene (principal); M12.30 Palindromic rheumatism, unspecified site
CPT/HCPCS: 99214

== ENCOUNTER → 2024-09-13 12:56 | Outpatient (BNVA) | payer BC, SELFPAY | PROVIDERS: PCP Internal Medicine; Visit Provider Internal Medicine Rheumatology ==

== ENCOUNTER 2025-09-04 14:13 | Outpatient (AMB) | payer BC, SELFPAY ==
--- OUTSIDE RECORDS SUMMARY | 2025-08-31 05:15 | XMS_ITS ---
Author Organization [facility] [address] Address [address] [place] [address] Care Team Providers Care Range Conservationist Name Role Phone DAE YOUNGBLOOD Primary Care Provider NICO Smith Unavailable [phone] Encounters Encounter Location Date Provider Diagnosis [facility] [address] [place] [address] 08/31/2025 NICO LARSON Plan Of Treatment Next Appt Details Provider Name:NICO LARSON, 10/19/2025 10:00:00 AM, [address], [place], [address], Progress Notes * IRWIN CARLSONOB:1970 (54 yo F)Acc No.[id number]:08/31/2025 Patient: TRISH MARTINEZ Provider: Hazel LARSON NP :1970 A ge:54 Y S ex:Female Date:08/31/2025 [address] [place] Pcp:DAE YOUNGBLOOD * Electronic signature of MADHU LARSON on 09/04/2025 at 07:01 PM EST Sign off status: Pending * Provider: Hazel LARSON NP Date: 11/01/2024 Generated for Erik redding/Jesica/eTransmitting on: 11/05/2024 07:01 PM EST
--- NOTE | 2025-09-04 14:17 | MHC.OFFVIS ---
Vital Signs 09/04/25 14:18 Height 5 ft 2 in Weight 170 lb 3.15 oz BMI 31.1 BP 130/86 Blood Pressure Location Rt brachial Position Sitting Pulse 82 Pulse Source Pulse Oximeter Pulse Oximetry (%) 93 Oxygen Delivery Method Room Air Intake Visit Reasons: 12 mnts f/u appt Intake Note: Patient presents for follow up on Raynaud's. Accompanied by: Self / Same As Patient Allergies No Known Allergies Allergy (Verified 09/04/25 14:18) HPI HPI 12 mnts f/u appt: Details: She experiences intermittent pain in her MCPs. She was prescribed meloxicam by her PCP for hip pain, which helps alleviate generalized arthralgias. When she was off of it she had increased joint pain. She has been back on it with more tolerable pain. No new joint swelling since last visit. She will be starting physical therapy for left hip strengthening. She had 1 episode of Raynaud's phenomenon where her fingers turn purple. This fall/winter she has not had many flares of Raynaud's syndrome. She wears gloves and has hand warmers. Denies fevers, dyspnea, pleurisy, oral ulcers, rashes, urinary symptoms. She sees urologist for evaluation of microscopic hematuria. She has been experiencing dry mouth for at least 9 months. She also has been experiencing dry eyes relieved with eyedrops prescribed by her eye doctor. She will be having a follow up visit this weekend with her eye doctor. [facility] Medical History Anxiety Raynaud disease Surgical History History of removal of laparoscopic gastric banding device Hx of laparoscopic gastric banding Physical Exam Vital Signs: Last Vital Signs Pulse 82 09/04/25 14:18 BP 130/86 09/04/25 14:18 Pulse Ox 93 09/04/25 14:18 Oxygen Delivery Method Room Air 09/04/25 14:18 BMI result Body Mass Index 31.1 Const Other: General: Comfortable CVS: RRR Respiratory: clear to auscultation bilaterally. Good respiratory effort Skin: No lesions seen. No digital ulcerations. No discoloration of fingers or toes. MSK: No tenderness of any joints. No synovitis. Good range of motion of upper extremities and lower extremities. Assessment & Plan Assessment & Plan (1) Palindromic rheumatism: Comment: She has had recurrent joint pain localized to bilateral MCPs exacerbated with activity. Unremarkable exam. She is on meloxicam, which is likely helping. Rheumatology history: Seronegative. 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 X-ray bilateral hands October 2023 normal. Code(s): M12.30 - Palindromic rheumatism, unspecified site Category: Medical Plan: She will continue meloxicam 15 mg daily and start physical therapy for hip strengthening. We discussed trial off of meloxicam when her hip pain is better controlled. She will then log her symptoms for follow up visit Inflammatory markers ordered Follow up in 4 months (2) Raynaud disease without gangrene: Comment: She had 1 episode, self resolved. Conservatively managed. Code(s): I73.00 - Raynaud's syndrome without gangrene Category: Medical Plan: Discussed conservative management. Monitor clinically (3) Dry mouth and eyes: Comment: I have reviewed labs [facility], which revealed negative NEVIN/SSA/SSB antibody. She has developed new dry mouth in the last 9 months, which progressively getting worse. She also has chronic dry eyes relieved with eyedrops. Code(s): R68.2 - Dry mouth, unspecified; H04.123 - Dry eye syndrome of bilateral lacrimal glands Category: Medical Plan: I am repeating workup for Sjogren syndrome She will be following up with her eye doctor this weekend. I have asked her to discuss having thorough eye exam for evaluation of keratoconjunctivitis sicca and Mattie's test Return to clinic in 4 months Orders: Orders Rheumatoid Factor Today H04.123 - Dry eye syndrome of bilateral lacrimal glands, R68.2 - Dry mouth, unspecified Erythrocyte Sedimentation Rate Today Z79.899 - Other rat exterminator (current) drug therapy Sjogren's Antibodies Today H04.123 - Dry eye syndrome of bilateral lacrimal glands, R68.2 - Dry mouth, unspecified NEVIN Reflex Titer and Pattern Today H04.123 - Dry eye syndrome of bilateral lacrimal glands, R68.2 - Dry mouth, unspecified Cyclic Citrullinated Peptide Today M12.30 - Palindromic rheumatism, unspecified site C Reactive Protein Today Z79.899 - Other intermediate (current) drug therapy Coding Level of Care Code Est Pt Level 4 (11343) Add On Problem Visit Only Diagnoses Palindromic rheumatism M12.30 Raynaud disease without gangrene I73.00 Dry mouth and eyes R68.2; H04.123
[2025-09-04 14:18] VITALS: BP 130/86; PULSE 82; O2SAT 93; BMI 31.1
--- OUTSIDE RECORDS SUMMARY | 2025-09-04 19:01 | XMS_ITS | Patient Health Record ---
Author Organization [facility] [address] Address [address] [place] [address] Care Team Providers Care Flight Engineer Name Role Phone DAE YOUNGBLOOD Primary Care Provider MADHU SmithEN Unavailable [phone] Allergies No Known Allergies Results Component Value Reference Range Flag Notes Hemoglobin [id number] Reviewed date:09/18/2024 07:57:27 AM Interpretation: Performing Lab:[facility] [place], [address] [place] [address], Phone - [phone], Director - MDJodry Notes/Report: Hemoglobin A1c 5.4 4.8-5.6 % . Prediabetes: 5.7 - 6.4 Diabetes: >6.4 Glycemic control for adults with diabetes: <7.0 Urinalysis, Complete-[id number] Reviewed date:09/18/2024 07:57:27 AM Interpretation: Performing Lab:[facility] [place], [address] [place] [address], Phone - [phone], Director - MDJodry Notes/Report: Specific Wynne 1.023 1.005-1.030 pH 5.5 5.0-7.5 Urine-Color Yellow Yellow Appearance Cloudy Clear A WBC Esterase Negative Negative Protein 1+ Negative/Trace A Glucose Negative Negative Ketones Negative Negative Occult Blood Trace Negative A Bilirubin Negative Negative Urobilinogen,Semi-Qn 0.2 0.2-1.0 mg/dL Nitrite, Urine Negative Negative Microscopic Examination See below: M icroscopic was indicated and was performed. WBC 0-5 0 - 5 /hpf RBC None seen 0 - 2 /hpf Epithelial Cells (non renal) 0-10 0 - 10 /hpf Casts None seen None seen /lpf Crystals Present N/A A Crystal Type Calcium Oxalate N/A Bacteria Few None seen/Few [id number] Reviewed date:09/18/2024 07:57:27 AM Interpretation: Performing Lab:[facility], [address] [place] [address], Phone - [phone], Director - Amber Notes/Report: TSH 2.120 0.450-4.500 uIU/mL CBC With Differential/Platel et-[id number] Reviewed date:09/18/2024 07:57:32 AM Interpretation: Performing Lab:[facility] [place], [address] [place] [address], Phone - [phone], Director - Amber Notes/Report: WBC 6.7 3.4-10.8 x10E3/uL RBC 4.49 3.77-5.28 x10E6/uL Hemoglobin 13.0 11.1-15.9 g/dL Hematocrit 41.0 34.0-46.6 % MCV 91 79-97 fL MCH 29.0 26.6-33.0 pg MCHC 31.7 31.5-35.7 g/dL RDW 13.3 11.7-15.4 % Platelets 221 150-450 x10E3/uL Neutrophils 73 Not Estab. % Lymphs 18 Not Estab. % Monocytes 7 Not Estab. % Eos 2 Not Estab. % Basos 0 Not Estab. % Neutrophils (Absolute) 4.8 1.4-7.0 x10E3/uL Lymphs (Absolute) 1.2 0.7-3.1 x10E3/uL Monocytes(Absolute) 0.5 0.1-0.9 x10E3/uL Eos (Absolute) 0.2 0.0-0.4 x10E3/uL Baso (Absolute) 0.0 0.0-0.2 x10E3/uL Immature Granulocytes 0 Not Estab. % Immature Grans (Abs) 0.0 0.0-0.1 x10E3/uL Vitamin D, 47-[id number] Reviewed date:09/18/2024 07:57:27 AM Interpretation: Performing Lab:[facility] [place], [address] [place] [address], Phone - [phone], Director - Amber Notes/Report: Vitamin D, 25-Hydroxy 42.9 30.0-100.0 ng/mL Vitamin D deficiency has been defined by the [place] [employer] and an Endocrine Society practice guideline as a level of serum 25-OH vitamin D less than 20 ng/mL (1,2). The Endocrine Society went on to further define vitamin D insufficiency as a level between 21 and 29 ng/mL (2). 1. IOM ([place] of [employer]). 2010. Dietary reference intakes for calcium and D. [place]: The National Academies Press. 2. Jorden MF, Wenceslao HORTON, Lidya BILLINGS, et al. Evaluation, treatment, and prevention of vitamin D deficiency: an Endocrine Society clinical practice guideline. JCEM. 2010; 96(7):1911-30. Lipid Panel-[id number] Reviewed date:09/18/2024 07:57:27 AM Interpretation: Performing Lab:[facility], [address] [facility], [place], Phone - [phone], Director - Amber Notes/Report: Cholesterol, Total 220 100-199 mg/dL H Triglycerides 99 0-149 mg/dL HDL Cholesterol 55 >39 mg/dL VLDL Cholesterol Olman 18 5-40 mg/dL LDL Chol Calc (NIH) 147 0-99 mg/dL H Comp. Metabolic Panel (14)-3 Reviewed date:09/18/2024 07:57:32 AM Interpretation: Performing Lab:[facility], [address] [facility], [place], Phone - [phone], Director - Amber Notes/Report: Glucose 82 70-99 mg/dL BUN 16 6-24 mg/dL Creatinine 0.78 0.57-1.00 mg/dL eGFR 90 >59 mL/min/1.73 BUN/Creatinine Ratio 21 9-23 Sodium 141 134-144 mmol/L Potassium 4.5 3.5-5.2 mmol/L Chloride 104 96-106 mmol/L Carbon Dioxide, Total 23 20-29 mmol/L Calcium 9.6 8.7-10.2 mg/dL Protein, Total 6.7 6.0-8.5 g/dL Albumin 4.1 3.8-4.9 g/dL Globulin, Total 2.6 1.5-4.5 g/dL Bilirubin, Total 0.4 0.0-1.2 mg/dL Alkaline Phosphatase 66 44-121 IU/L AST (SGOT) 19 0-40 IU/L ALT (SGPT) 21 0-32 IU/L Reason For Referral Diagnosis 1 Type 2 diabetes bernice itus without complication, without long-term current use of insulin (E11.9) Referred Organization [facility] [address] Referred Provider NICO LARSON Referred Address [address] [place] [address],[address] ,[place], [place],[address],[place] Referred Provider Specialty Weight Manag ement Referral Priority Routine Medications Medication SIG (Take, Route, Frequency, Duration) Notes Start Date End Date Status PARoxetine HCl 30 MG Tablet 1 tablet in the morning Orally Once a day Active Losartan Potassium-HCTZ 50-12.5 MG Tablet 1 tablet Orally Once a day Active busPIRone HCl 15 MG Tablet 1 tablet Orally Twice a day Active Mounjaro 12.5 MG/0.5ML Solution Auto-injector INJECT 12.5MG DIRECTED SUBCUTANEOUS ONCE WEEKLY; Duration: 28 Active Meloxicam 15 MG Tablet 1 tablet Orally Once a day Active ZyrTEC Allergy 10 MG Tablet 1 tablet Orally Once a day A ctive Social History Section Notes: Pt quit tobacco products in 1999 also quit alcohol use in 2021 admits to daily marijuana use Pt quit tobacco products in 1999 also quit alcohol use in 2021 admits to daily marijuana use Pt quit tobacco products in 1999 also quit alcohol use in 2021 admits to daily marijuana use Pt quit tobacco products in 1999 also quit alcohol use in 2021 admits to daily marijuana use Pt quit tobacco products in 1999 also quit alcohol use in 2021 admits to daily marijuana use Pt quit tobacco products in 1999 also quit alcohol use in 2021 admits to daily marijuana use Pt quit tobacco products in 1999 also quit alcohol use in 2021 admits to daily marijuana use Pt quit tobacco products in 1999 also quit alcohol use in 2021 admits to daily marijuana use Pt quit tobacco products in 1999 also quit alcohol use in 2021 admits to daily marijuana use Pt quit tobacco products in 1999 also quit alcohol use in 2021 admits to daily marijuana use Pt quit tobacco products in 1999 also quit alcohol use in 2021 admits to daily marijuana use Pt quit tobacco products in 1999 also quit alcohol use in 2021 admits to daily marijuana use Problems Problem Type SNOMED Code ICD Code Onset Dates Problem Status W/U Status Risk Notes Problem Vitamin D deficiency (28446130) Vitamin D deficiency, unspecified (E55.9) Active confirmed Problem Morbid obesity (disorder) (586349804) Morbid (severe) obesity due to excess calories (E66.01) Active confirmed Problem Obesity due to excess calories (201151774) Other obesity due to excess calories (E66.09) Active confirmed Problem Lipid screening (949967046) Encounter for screening for lipoid disorders (Z13.220) Active confirmed Problem Hyperlipidaemia (41965233) Hyperlipidemia, unspecified hyperlipidemia type (E78.5) Active confirmed Problem Adult health examination (527332396) Adult general medical exam (Z00.00) Active confirmed Problem Diabetes mellitus screening (183743941) Diabetes mellitus screening (Z13.1) Active confirmed Problem Body mass index 40+ - morbidly obese (276637702) BMI 40.0-44.9, adult (Z68.41) Active confirmed Problem Type II diabetes mellitus without complication (816530726) Type 2 diabetes mellitus without complication, without long-term current use of insulin (E11.9) Active confirmed Problem Obesity (074227405) Obesity (BMI 30-39.9) (E66.9) Active confirmed Problem Body mass index 35.00 to 39.99 (668255493010324) Body mass index [BMI] 37.0-37.9, adult (Z68.37) Active confirmed Problem Obese class I (852680165806628) BMI 33.0-33.9,adult (Z68.33) Active confirmed Problem BMI 30+ - obesity (171344843) BMI 32.0-32.9,adult (Z68.32) Active confirmed Problem Polycystic ovary syndrome (disorder) (022801462) PCOS (polycystic ovarian syndrome) (E28.2) Active confirmed Problem Body mass index 30.00 to 34.99 (028411113045237) BMI 31.0-31.9,adult (Z68.31) Active confirmed Problem Body mass index 30+ - obesity (471340949) BMI 30.0-30.9,adult (Z68.30) Active confirmed Problem Endocrine/metaboli c screening (023554705) Encounter for screening for endocrine disorder (Z13.29) Active confirmed Problem Dietary management surveillance (435078712) Nutritional counseling (Z71.3) Active confirmed Vital Signs Heart Rate 77 /min 07/13/2025 Oximetry 99 % 07/13/2025 Blood pressure diastolic 78 mm Hg 07/13/2025 Height 62 in 07/13/2025 Blood pressure systolic 120 mm Hg 07/13/2025 Weight 169 lbs 07/13/2025 BMI 30.91 kg/m2 07/13/2025 Encounters Encounter Location Date Provider Diagnosis [facility] [address] [address] 09/17/2024 NICO BORHOT Other obesity due to excess calories E66.09 ; BMI 33.0-33.9,adult Z68.33 ; Dietary counseling and surveillance Z71.3 ; Type 2 diabetes mellitus without complication, without long-term current use of insulin E11.9 and PCOS (polycystic ovarian syndrome) E28.2 [facility] [address] [address] 11/07/2024 NICO BORHOT Other obesity due to excess calories E66.09 ; BMI 33.0-33.9,adult Z68.33 ; Dietary counseling and surveillance Z71.3 ; Type 2 diabetes mellitus without complication, without long-term current use of insulin E11.9 and PCOS (polycystic ovarian syndrome) E28.2 [facility] [address] [address] 12/19/2024 NICO BORHOT Other obesity due to excess calories E66.09 ; BMI 32.0-32.9,adult Z68.32 ; Dietary counseling and surveillance Z71.3 ; Type 2 diabetes mellitus without complication, without long-term current use of insulin E11.9 and PCOS (polycystic ovarian syndrome) E28.[address] [facility] [address] [place] [address] 03/16/2025 NICO BORHOT Other obesity due to excess calories E66.09 ; BMI 33.0-33.9,adult Z68.33 ; Dietary counseling and surveillance Z71.3 ; Type 2 diabetes mellitus without complication, without long-term current use of insulin E11.9 ; PCOS (polycystic ovarian syndrome) E28.2 and Encounter for examination of blood pressure without abnormal findings Z01.[address] [facility] [address] [place] [address] 04/20/2025 NICO BORHOT Other obesity due to excess calories E66.09 ; BMI 31.0-31.9,adult Z68.31 ; Dietary counseling and surveillance Z71.3 ; Type 2 diabetes mellitus without complication, without long-term current use of insulin E11.9 ; PCOS (polycystic ovarian syndrome) E28.2 and Encounter for examination of blood pressure without abnormal findings Z01.[address] [facility] [address] [place] [address] 06/01/2025 NICO LARSON Other obesity due to excess calories E66.09 ; BMI 30.0-30.9,adult Z68.30 ; Dietary counseling and surveillance Z71.3 ; Type 2 diabetes mellitus without complication, without long-term current use of insulin E11.9 ; PCOS (polycystic ovarian syndrome) E28.2 and Encounter for examination of blood pressure without abnormal findings Z01.[address] [address] [place], [place] 07/13/2025 NICO LAROSN Other obesity due to excess calories E66.09 ; BMI 30.0-30.9,adult Z68.30 ; Dietary counseling and surveillance Z71.3 ; Type 2 diabetes mellitus without complication, without long-term current use of insulin E11.9 ; PCOS (polycystic ovarian syndrome) E28.2 and Encounter for examination of blood pressure without abnormal findings Z01.30 [facility] [address] [place] [address] 04/18/2025 NICO VALDEZTyrone [facility] [address] [place] [address] 06/06/2025 NICO LARSON Type 2 diabetes bernice itus without complication, without long-term current use of insulin E11.9 Assessments Encounter Date Diagnosis (ICD Code) Assessment Notes Treatment Notes Treatment Clinical Notes Section Notes 09/17/2024 Other obesity due to excess calories (ICD-10 - E66.09) #Weight Management 09/17/2024 Follow-up on labs from [facility] this morning She is thriving on dual incretin therapy cont Mounjaro to 7.5 mg hemoglobin A1c euglycemic at 5.3 Total time spent today was 30 minutes of which greater than 50% was spent on coordinating and counseling Patient has been found to be obese with a BMI of (33). Patient has class (1) obesity. We are a board certified obesity and weight management practice Patient has trialed behavioral modification, dietary restrictions and exercise for a minimum of 6 months The most recent [place] [employer] of clinical endocrinologists and [place] [employer] of [employer]ocrin[employer] guidelines recommend patients who [...] software and direct typing Please excuse inadvertent landscape painter or typing errors, or uncorrected word substitutions Although every attempt has been made by the provider to proofread this document, occasional misspellings and typographical errors may still be present Due to the previous pandemic, and the use of personal protective equipment (PPE) This may decrease voice recognition accuracy Inadvertent landscape painter errors may occur 11/07/2024 Other obesity due to excess calories (ICD-10 - E66.09) #Weight Management 11/07/2024 Increase Mounjaro to 10 mg She is thriving on dual incretin therapy hemoglobin A1c euglycemic at 5.4 Total time spent today was 30 minutes of which greater than 50% was spent on coordinating and counseling Patient has been found to be obese with a BMI of (33). Patient has class (1) obesity. We are a board certified obesity and weight management practice Of note, some information is being carried forward from prior records for informational purposes only and is being cited so that efficiency, safety and quality of the patient's care is not compromised This note was prepared using voice recognition software and direct typing Please excuse inadvertent landscape painter or typing errors, or uncorrected word substitutions Although every attempt has been made by the provider to proofread this document, occasional misspellings and typographical errors may still be present Due to the previous pandemic, and the use of personal protective equipment (PPE) This may decrease voice recognition accuracy Inadvertent landscape painter errors may occur 12/19/2024 Other obesity due to excess calories (ICD-10 - E66.09) #Weight Management 12/19/2024 Continue Mounjaro 10 mg She is thriving on dual incretin therapy hemoglobin A1c euglycemic at 5.4 Total time spent today was 30 minutes of which greater than 50% was spent on coordinating and counseling Patient has been found to be obese with a BMI of (32). Patient has class (1) obesity. We are a board certified obesity and weight management practice Of note, some information is being carried forward from prior records for informational purposes only and is being cited so that efficiency, safety and quality of the patient's care is not compromised This note was prepared using voice recognition software and direct typing Please excuse inadvertent landscape painter or typing errors, or uncorrected word substitutions Although every attempt has been made by the provider to proofread this document, occasional misspellings and typographical errors may still be present Due to the previous pandemic, and the use of personal protective equipment (PPE) This may decrease voice recognition accuracy Inadvertent landscape painter errors may occur 12/19/2024 BMI 32.0-32.9,adult (ICD-10 - Z68.32) #Weight Management 12/19/2024 Continue Mounjaro 10 mg She is thriving on dual incretin therapy hemoglobin A1c euglycemic at 5.4 Total time spent today was 30 minutes of which greater than 50% was spent on coordinating and counseling Patient has been found to be obese with a BMI of (32). Patient has class (1) obesity. We are a board certified obesity and weight management practice Of note, some information is being carried forward from prior records for informational purposes only and is being cited so that efficiency, safety and quality of the patient's care is not compromised This note was prepared using voice recognition software and direct typing Please excuse inadvertent landscape painter or typing errors, or uncorrected word substitutions Although every attempt has been made by the provider to proofread this document, occasional misspellings and typographical errors may still be present Due to the previous pandemic, and the use of personal protective equipment (PPE) This may decrease voice recognition accuracy Inadvertent landscape painter errors may occur 03/16/2025 Other obesity due to excess calories (ICD-10 - E66.09) #Weight Management 03/16/2025 Increase to 12.5 mg Increase activity and clean up diet hemoglobin A1c euglycemic at 5.4 Total time spent today was 30 minutes of which greater than 50% was spent on coordinating and counseling Patient has been found to be obese with a BMI of (33). Patient has class (1) obesity. We are a board certified obesity and weight management practice Of note, some information is being carried forward from prior records for informational purposes only and is being cited so that efficiency, safety and quality of the patient's care is not compromised This note was prepared using voice recognition software and direct typing Please excuse inadvertent landscape painter or typing errors, or uncorrected word substitutions Although every attempt has been made by the provider to proofread this document, occasional misspellings and typographical errors may still be present Due to the previous pandemic, and the use of personal protective equipment (PPE) This may decrease voice recognition accuracy Inadvertent landscape painter errors may occur 03/16/2025 BMI 33.0-33.9,adult (ICD-10 - Z68.33) #Weight Management 03/16/2025 Increase to 12.5 mg Increase activity and clean up diet hemoglobin A1c euglycemic at 5.4 Total time spent today was 30 minutes of which greater than 50% was spent on coordinating and counseling Patient has been found to be obese with a BMI of (33). Patient has class (1) obesity. We are a board certified obesity and weight management practice Of note, some information is being carried forward from prior records for informational purposes only and is being cited so that efficiency, safety and quality of the patient's care is not compromised This note was prepared using voice recognition software and direct typing Please excuse inadvertent landscape painter or typing errors, or uncorrected word substitutions Although every attempt has been made by the provider to proofread this document, occasional misspellings and typographical errors may still be present Due to the previous pandemic, and the use of personal protective equipment (PPE) This may decrease voice recognition accuracy Inadvertent landscape painter errors may occur 04/20/2025 Other obesity due to excess calories (ICD-10 - E66.09) #Weight Management 04/20/2025 Strongly recommended incorporating micronutrients including B12 complex vitamin D3 with K2 as well as probiotics cont 12.5 mg Total time spent today was 30 minutes of which greater than 50% was spent on coordinating and counseling Patient has been found to be obese with a BMI of (31). Patient has class (1) obesity. We are a board certified obesity and weight management practice Of note, some information is being carried forward from prior records for informational purposes only and is being cited so that efficiency, safety and quality of the patient's care is not compromised This note was prepared using voice recognition software and direct typing Please excuse inadvertent landscape painter or typing errors, or uncorrected word substitutions Although every attempt has been made by the provider to proofread this document, occasional misspellings and typographical errors may still be present Due to the previous pandemic, and the use of personal protective equipment (PPE) This may decrease voice recognition accuracy Inadvertent landscape painter errors may occur 04/20/2025 BMI 31.0-31.9,adult (ICD-10 - Z68.31) #Weight Management 04/20/2025 Strongly recommended incorporating micronutrients including B12 complex vitamin D3 with K2 as well as probiotics cont 12.5 mg Total time spent today was 30 minutes of which greater than 50% was spent on coordinating and counseling Patient has been found to be obese with a BMI of (31). Patient has class (1) obesity. We are a board certified obesity and weight management practice Of note, some information is being carried forward from prior records for informational purposes only and is being cited so that efficiency, safety and quality of the patient's care is not compromised This note was prepared using voice recognition software and direct typing Please excuse inadvertent landscape painter or typing errors, or uncorrected word substitutions Although every attempt has been made by the provider to proofread this document, occasional misspellings and typographical errors may still be present Due to the previous pandemic, and the use of personal protective equipment (PPE) This may decrease voice recognition accuracy Inadvertent landscape painter errors may occur 06/01/2025 Other obesity due to excess calories (ICD-10 - E66.09) #Weight Management 06/01/2025 Patient is thriving euglycemic continued weight loss and good muscle mass and losing fat mass on body composition Continue micronutrients Continue 12.5 mg dosing Discussed blood pressure recommendations and will have discussion with her PCP Total time spent today was 30 minutes of which greater than 50% was spent on coordinating and counseling Patient has been found to be obese with a BMI of (30). Patient has class (1) obesity. We are a board certified obesity and weight management practice Of note, some information is being carried forward from prior records for informational purposes only and is being cited so that efficiency, safety and quality of the patient's care is not compromised This note was prepared using voice recognition software and direct typing Please excuse inadvertent landscape painter or typing errors, or uncorrected word substitutions Although every attempt has been made by the provider to proofread this document, occasional misspellings and typographical errors may still be present Due to the previous pandemic, and the use of personal protective equipment (PPE) This may decrease voice recognition accuracy Inadvertent landscape painter errors may occur 06/01/2025 BMI 30.0-30.9,adult (ICD-10 - Z68.30) #Weight Management 06/01/2025 Patient is thriving euglycemic continued weight loss and good muscle mass and losing fat mass on body composition Continue micronutrients Continue 12.5 mg dosing Discussed blood pressure recommendations and will have discussion with her PCP Total time spent today was 30 minutes of which greater than 50% was spent on coordinating and counseling Patient has been found to be obese with a BMI of (30). Patient has class (1) obesity. We are a board certified obesity and weight management practice Of note, some information is being carried forward from prior records for informational purposes only and is being cited so that efficiency, safety and quality of the patient's care is not compromised This note was prepared using voice recognition software and direct typing Please excuse inadvertent landscape painter or typing errors, or uncorrected word substitutions Although every attempt has been made by the provider to proofread this document, occasional misspellings and typographical errors may still be present Due to the previous pandemic, and the use of personal protective equipment (PPE) This may decrease voice recognition accuracy Inadvertent landscape painter errors may occur 06/06/2025 Type 2 diabetes mellitus without complication, without long-term current use of insulin (ICD-10 - E11.9) 07/13/2025 Other obesity due to excess calories (ICD-10 - E66.09) #Weight Management 07/13/2025 Patient is thriving euglycemic continued weight loss and good muscle mass and losing fat mass on body composition Continue micronutrients Continue 12.5 mg dosing losartan monotherapy, hctz DC Total time spent today was 30 minutes of which greater than 50% was spent on coordinating and counseling Patient has been found to be obese with a BMI of (30). Patient has class (1) obesity. We are a board certified obesity and weight management practice Of note, some information is being carried forward from prior records for informational purposes only and is being cited so that efficiency, safety and quality of the patient's care is not compromised This note was prepared using voice recognition software and direct typing Please excuse inadvertent landscape painter or typing errors, or uncorrected word substitutions Although every attempt has been made by the provider to proofread this document, occasional misspellings and typographical errors may still be present Due to the previous pandemic, and the use of personal protective equipment (PPE) This may decrease voice recognition accuracy Inadvertent landscape painter errors may occur 04/20/2025 Dietary counseling and surveillance (ICD-10 - Z71.3) #Weight Management 04/20/2025 Strongly recommended incorporating micronutrients including B12 complex vitamin D3 with K2 as well as probiotics cont 12.5 mg Total time spent today was 30 minutes of which greater than 50% was spent on coordinating and counseling Patient has been found to be obese with a BMI of (31). Patient has class (1) obesity. We are a board certified obesity and weight management practice Of note, some information is being carried forward from prior records for informational purposes only and is being cited so that efficiency, safety and quality of the patient's care is not compromised This note was prepared using voice recognition software and direct typing Please excuse inadvertent landscape painter or typing errors, or uncorrected word substitutions Although every attempt has been made by the provider to proofread this document, occasional misspellings and typographical errors may still be present Due to the previous pandemic, and the use of personal protective equipment (PPE) This may decrease voice recognition accuracy Inadvertent landscape painter errors may occur 06/01/2025 Dietary counseling and surveillance (ICD-10 - Z71.3) #Weight Management 06/01/2025 Patient is thriving euglycemic continued weight loss and good muscle mass and losing fat mass on body composition Continue micronutrients Continue 12.5 mg dosing Discussed blood pressure recommendations and will have discussion with her PCP Total time spent today was 30 minutes of which greater than 50% was spent on coordinating and counseling Patient has been found to be obese with a BMI of (30). Patient has class (1) obesity. We are a board certified obesity and weight management practice Of note, some information is being carried forward from prior records for informational purposes only and is being cited so that efficiency, safety and quality of the patient's care is not compromised This note was prepared using voice recognition software and direct typing Please excuse inadvertent landscape painter or typing errors, or uncorrected word substitutions Although every attempt has been made by the provider to proofread this document, occasional misspellings and typographical errors may still be present Due to the previous pandemic, and the use of personal protective equipment (PPE) This may decrease voice recognition accuracy Inadvertent landscape painter errors may occur 07/13/2025 BMI 30.0-30.9,adult (ICD-10 - Z68.30) #Weight Management 07/13/2025 Patient is thriving euglycemic continued weight loss and good muscle mass and losing fat mass on body composition Continue micronutrients Continue 12.5 mg dosing losartan monotherapy, hctz DC Total time spent today was 30 minutes of which greater than 50% was spent on coordinating and counseling Patient has been found to be obese with a BMI of (30). Patient has class (1) obesity. We are a board certified obesity and weight management practice Of note, some information is being carried forward from prior records for informational purposes only and is being cited so that efficiency, safety and quality of the patient's care is not compromised This note was prepared using voice recognition software and direct typing Please excuse inadvertent landscape painter or typing errors, or uncorrected word substitutions Although every attempt has been made by the provider to proofread this document, occasional misspellings and typographical errors may still be present Due to the previous pandemic, and the use of personal protective equipment (PPE) This may decrease voice recognition accuracy Inadvertent landscape painter errors may occur 03/16/2025 Dietary counseling and surveillance (ICD-10 - Z71.3) #Weight Management 03/16/2025 Increase to 12.5 mg Increase activity and clean up diet hemoglobin A1c euglycemic at 5.4 Total time spent today was 30 minutes of which greater than 50% was spent on coordinating and counseling Patient has been found to be obese with a BMI of (33). Patient has class (1) obesity. We are a board certified obesity and weight management practice Of note, some information is being carried forward from prior records for informational purposes only and is being cited so that efficiency, safety and quality of the patient's care is not compromised This note was prepared using voice recognition software and direct typing Please excuse inadvertent landscape painter or typing errors, or uncorrected word substitutions Although every attempt has been made by the provider to proofread this document, occasional misspellings and typographical errors may still be present Due to the previous pandemic, and the use of personal protective equipment (PPE) This may decrease voice recognition accuracy Inadvertent landscape painter errors may occur 12/19/2024 Dietary counseling and surveillance (ICD-10 - Z71.3) #Weight Management 12/19/2024 Continue Mounjaro 10 mg She is thriving on dual incretin therapy hemoglobin A1c euglycemic at 5.4 Total time spent today was 30 minutes of which greater than 50% was spent on coordinating and counseling Patient has been found to be obese with a BMI of (32). Patient has class (1) obesity. We are a board certified obesity and weight management practice Of note, some information is being carried forward from prior records for informational purposes only and is being cited so that efficiency, safety and quality of the patient's care is not compromised This note was prepared using voice recognition software and direct typing Please excuse inadvertent landscape painter or typing errors, or uncorrected word substitutions Although every attempt has been made by the provider to proofread this document, occasional misspellings and typographical errors may still be present Due to the previous pandemic, and the use of personal protective equipment (PPE) This may decrease voice recognition accuracy Inadvertent landscape painter errors may occur 11/07/2024 BMI 33.0-33.9,adult (ICD-10 - Z68.33) #Weight Management 11/07/2024 Increase Mounjaro to 10 mg She is thriving on dual incretin therapy hemoglobin A1c euglycemic at 5.4 Total time spent today was 30 minutes of which greater than 50% was spent on coordinating and counseling Patient has been found to be obese with a BMI of (33). Patient has class (1) obesity. We are a board certified obesity and weight management practice Of note, some information is being carried forward from prior records for informational purposes only and is being cited so that efficiency, safety and quality of the patient's care is not compromised This note was prepared using voice recognition software and direct typing Please excuse inadvertent landscape painter or typing errors, or uncorrected word substitutions Although every attempt has been made by the provider to proofread this document, occasional misspellings and typographical errors may still be present Due to the previous pandemic, and the use of personal protective equipment (PPE) This may decrease voice recognition accuracy Inadvertent landscape painter errors may occur 09/17/2024 BMI 33.0-33.9,adult (ICD-10 - Z68.33) #Weight Management 09/17/2024 Follow-up on labs from [facility] this morning She is thriving on dual incretin therapy cont Mounjaro to 7.5 mg hemoglobin A1c euglycemic at 5.3 Total time spent today was 30 minutes of which greater than 50% was spent on coordinating and counseling Patient has been found to be obese with a BMI of (33). Patient has class (1) obesity. We are a board certified obesity and weight management practice Patient has trialed behavioral modification, dietary restrictions and exercise for a minimum of 6 months The most recent [place] [employer] and [place] [employer] guidelines recommend patients who [...] software and direct typing Please excuse inadvertent landscape painter or typing errors, or uncorrected word substitutions Although every attempt has been made by the provider to proofread this document, occasional misspellings and typographical errors may still be present Due to the previous pandemic, and the use of personal protective equipment (PPE) This may decrease voice recognition accuracy Inadvertent landscape painter errors may occur 09/17/2024 Dietary counseling and surveillance (ICD-10 - Z71.3) #Weight Management 09/17/2024 Follow-up on labs from [facility] this morning She is thriving on dual incretin therapy cont Mounjaro to 7.5 mg hemoglobin A1c euglycemic at 5.3 Total time spent today was 30 minutes of which greater than 50% was spent on coordinating and counseling Patient has been found to be obese with a BMI of (33). Patient has class (1) obesity. We are a board certified obesity and weight management practice Patient has trialed behavioral modification, dietary restrictions and exercise for a minimum of 6 months The most recent [place] [employer] and [place] [employer] guidelines recommend patients who [...] software and direct typing Please excuse inadvertent landscape painter or typing errors, or uncorrected word substitutions Although every attempt has been made by the provider to proofread this document, occasional misspellings and typographical errors may still be present Due to the previous pandemic, and the use of personal protective equipment (PPE) This may decrease voice recognition accuracy Inadvertent landscape painter errors may occur 11/07/2024 Dietary counseling and surveillance (ICD-10 - Z71.3) #Weight Management 11/07/2024 Increase Mounjaro to 10 mg She is thriving on dual incretin therapy hemoglobin A1c euglycemic at 5.4 Total time spent today was 30 minutes of which greater than 50% was spent on coordinating and counseling Patient has been found to be obese with a BMI of (33). Patient has class (1) obesity. We are a board certified obesity and weight management practice Of note, some information is being carried forward from prior records for informational purposes only and is being cited so that efficiency, safety and quality of the patient's care is not compromised This note was prepared using voice recognition software and direct typing Please excuse inadvertent landscape painter or typing errors, or uncorrected word substitutions Although every attempt has been made by the provider to proofread this document, occasional misspellings and typographical errors may still be present Due to the previous pandemic, and the use of personal protective equipment (PPE) This may decrease voice recognition accuracy Inadvertent landscape painter errors may occur 12/19/2024 Type 2 diabetes mellitus without complication, without long-term current use of insulin (ICD-10 - E11.9) #Weight Management 12/19/2024 Continue Mounjaro 10 mg She is thriving on dual incretin therapy hemoglobin A1c euglycemic at 5.4 Total time spent today was 30 minutes of which greater than 50% was spent on coordinating and counseling Patient has been found to be obese with a BMI of (32). Patient has class (1) obesity. We are a board certified obesity and weight management practice Of note, some information is being carried forward from prior records for informational purposes only and is being cited so that efficiency, safety and quality of the patient's care is not compromised This note was prepared using voice recognition software and direct typing Please excuse inadvertent landscape painter or typing errors, or uncorrected word substitutions Although every attempt has been made by the provider to proofread this document, occasional misspellings and typographical errors may still be present Due to the previous pandemic, and the use of personal protective equipment (PPE) This may decrease voice recognition accuracy Inadvertent landscape painter errors may occur 03/16/2025 Type 2 diabetes mellitus without complication, without long-term current use of insulin (ICD-10 - E11.9) #Weight Management 03/16/2025 Increase to 12.5 mg Increase activity and clean up diet hemoglobin A1c euglycemic at 5.4 Total time spent today was 30 minutes of which greater than 50% was spent on coordinating and counseling Patient has been found to be obese with a BMI of (33). Patient has class (1) obesity. We are a board certified obesity and weight management practice Of note, some information is being carried forward from prior records for informational purposes only and is being cited so that efficiency, safety and quality of the patient's care is not compromised This note was prepared using voice recognition software and direct typing Please excuse inadvertent landscape painter or typing errors, or uncorrected word substitutions Although every attempt has been made by the provider to proofread this document, occasional misspellings and typographical errors may still be present Due to the previous pandemic, and the use of personal protective equipment (PPE) This may decrease voice recognition accuracy Inadvertent landscape painter errors may occur 06/01/2025 Type 2 diabetes mellitus without complication, without long-term current use of insulin (ICD-10 - E11.9) #Weight Management 06/01/2025 Patient is thriving euglycemic continued weight loss and good muscle mass and losing fat mass on body composition Continue micronutrients Continue 12.5 mg dosing Discussed blood pressure recommendations and will have discussion with her PCP Total time spent today was 30 minutes of which greater than 50% was spent on coordinating and counseling Patient has been found to be obese with a BMI of (30). Patient has class (1) obesity. We are a board certified obesity and weight management practice Of note, some information is being carried forward from prior records for informational purposes only and is being cited so that efficiency, safety and quality of the patient's care is not compromised This note was prepared using voice recognition software and direct typing Please excuse inadvertent landscape painter or typing errors, or uncorrected word substitutions Although every attempt has been made by the provider to proofread this document, occasional misspellings and typographical errors may still be present Due to the previous pandemic, and the use of personal protective equipment (PPE) This may decrease voice recognition accuracy Inadvertent landscape painter errors may occur 07/13/2025 Dietary counseling and surveillance (ICD-10 - Z71.3) #Weight Management 07/13/2025 Patient is thriving euglycemic continued weight loss and good muscle mass and losing fat mass on body composition Continue micronutrients Continue 12.5 mg dosing losartan monotherapy, hctz DC Total time spent today was 30 minutes of which greater than 50% was spent on coordinating and counseling Patient has been found to be obese with a BMI of (30). Patient has class (1) obesity. We are a board certified obesity and weight management practice Of note, some information is being carried forward from prior records for informational purposes only and is being cited so that efficiency, safety and quality of the patient's care is not compromised This note was prepared using voice recognition software and direct typing Please excuse inadvertent landscape painter or typing errors, or uncorrected word substitutions Although every attempt has been made by the provider to proofread this document, occasional misspellings and typographical errors may still be present Due to the previous pandemic, and the use of personal protective equipment (PPE) This may decrease voice recognition accuracy Inadvertent landscape painter errors may occur 04/20/2025 Type 2 diabetes mellitus without complication, without long-term current use of insulin (ICD-10 - E11.9) #Weight Management 04/20/2025 Strongly recommended incorporating micronutrients including B12 complex vitamin D3 with K2 as well as probiotics cont 12.5 mg Total time spent today was 30 minutes of which greater than 50% was spent on coordinating and counseling Patient has been found to be obese with a BMI of (31). Patient has class (1) obesity. We are a board certified obesity and weight management practice Of note, some information is being carried forward from prior records for informational purposes only and is being cited so that efficiency, safety and quality of the patient's care is not compromised This note was prepared using voice recognition software and direct typing Please excuse inadvertent landscape painter or typing errors, or uncorrected word substitutions Although every attempt has been made by the provider to proofread this document, occasional misspellings and typographical errors may still be present Due to the previous pandemic, and the use of personal protective equipment (PPE) This may decrease voice recognition accuracy Inadvertent landscape painter errors may occur 04/20/2025 PCOS (polycystic ovarian syndrome) (ICD-10 - E28.2) #Weight Management 04/20/2025 Strongly recommended incorporating micronutrients including B12 complex vitamin D3 with K2 as well as probiotics cont 12.5 mg Total time spent today was 30 minutes of which greater than 50% was spent on coordinating and counseling Patient has been found to be obese with a BMI of (31). Patient has class (1) obesity. We are a board certified obesity and weight management practice Of note, some information is being carried forward from prior records for informational purposes only and is being cited so that efficiency, safety and quality of the patient's care is not compromised This note was prepared using voice recognition software and direct typing Please excuse inadvertent landscape painter or typing errors, or uncorrected word substitutions Although every attempt has been made by the provider to proofread this document, occasional misspellings and typographical errors may still be present Due to the previous pandemic, and the use of personal protective equipment (PPE) This may decrease voice recognition accuracy Inadvertent landscape painter errors may occur 07/13/2025 Type 2 diabetes mellitus without complication, without long-term current use of insulin (ICD-10 - E11.9) #Weight Management 07/13/2025 Patient is thriving euglycemic continued weight loss and good muscle mass and losing fat mass on body composition Continue micronutrients Continue 12.5 mg dosing losartan monotherapy, hctz DC Total time spent today was 30 minutes of which greater than 50% was spent on coordinating and counseling Patient has been found to be obese with a BMI of (30). Patient has class (1) obesity. We are a board certified obesity and weight management practice Of note, some information is being carried forward from prior records for informational purposes only and is being cited so that efficiency, safety and quality of the patient's care is not compromised This note was prepared using voice recognition software and direct typing Please excuse inadvertent landscape painter or typing errors, or uncorrected word substitutions Although every attempt has been made by the provider to proofread this document, occasional misspellings and typographical errors may still be present Due to the previous pandemic, and the use of personal protective equipment (PPE) This may decrease voice recognition accuracy Inadvertent landscape painter errors may occur 06/01/2025 PCOS (polycystic ovarian syndrome) (ICD-10 - E28.2) #Weight Management 06/01/2025 Patient is thriving euglycemic continued weight loss and good muscle mass and losing fat mass on body composition Continue micronutrients Continue 12.5 mg dosing Discussed blood pressure recommendations and will have discussion with her PCP Total time spent today was 30 minutes of which greater than 50% was spent on coordinating and counseling Patient has been found to be obese with a BMI of (30). Patient has class (1) obesity. We are a board certified obesity and weight management practice Of note, some information is being carried forward from prior records for informational purposes only and is being cited so that efficiency, safety and quality of the patient's care is not compromised This note was prepared using voice recognition software and direct typing Please excuse inadvertent landscape painter or typing errors, or uncorrected word substitutions Although every attempt has been made by the provider to proofread this document, occasional misspellings and typographical errors may still be present Due to the previous pandemic, and the use of personal protective equipment (PPE) This may decrease voice recognition accuracy Inadvertent landscape painter errors may occur 03/16/2025 PCOS (polycystic ovarian syndrome) (ICD-10 - E28.2) #Weight Management 03/16/2025 Increase to 12.5 mg Increase activity and clean up diet hemoglobin A1c euglycemic at 5.4 Total time spent today was 30 minutes of which greater than 50% was spent on coordinating and counseling Patient has been found to be obese with a BMI of (33). Patient has class (1) obesity. We are a board certified obesity and weight management practice Of note, some information is being carried forward from prior records for informational purposes only and is being cited so that efficiency, safety and quality of the patient's care is not compromised This note was prepared using voice recognition software and direct typing Please excuse inadvertent landscape painter or typing errors, or uncorrected word substitutions Although every attempt has been made by the provider to proofread this document, occasional misspellings and typographical errors may still be present Due to the previous pandemic, and the use of personal protective equipment (PPE) This may decrease voice recognition accuracy Inadvertent landscape painter errors may occur 12/19/2024 PCOS (polycystic ovarian syndrome) (ICD-10 - E28.2) #Weight Management 12/19/2024 Continue Mounjaro 10 mg She is thriving on dual incretin therapy hemoglobin A1c euglycemic at 5.4 Total time spent today was 30 minutes of which greater than 50% was spent on coordinating and counseling Patient has been found to be obese with a BMI of (32). Patient has class (1) obesity. We are a board certified obesity and weight management practice Of note, some information is being carried forward from prior records for informational purposes only and is being cited so that efficiency, safety and quality of the patient's care is not compromised This note was prepared using voice recognition software and direct typing Please excuse inadvertent landscape painter or typing errors, or uncorrected word substitutions Although every attempt has been made by the provider to proofread this document, occasional misspellings and typographical errors may still be present Due to the previous pandemic, and the use of personal protective equipment (PPE) This may decrease voice recognition accuracy Inadvertent landscape painter errors may occur 11/07/2024 Type 2 diabetes mellitus without complication, without long-term current use of insulin (ICD-10 - E11.9) #Weight Management 11/07/2024 Increase Mounjaro to 10 mg She is thriving on dual incretin therapy hemoglobin A1c euglycemic at 5.4 Total time spent today was 30 minutes of which greater than 50% was spent on coordinating and counseling Patient has been found to be obese with a BMI of (33). Patient has class (1) obesity. We are a board certified obesity and weight management practice Of note, some information is being carried forward from prior records for informational purposes only and is being cited so that efficiency, safety and quality of the patient's care is not compromised This note was prepared using voice recognition software and direct typing Please excuse inadvertent landscape painter or typing errors, or uncorrected word substitutions Although every attempt has been made by the provider to proofread this document, occasional misspellings and typographical errors may still be present Due to the previous pandemic, and the use of personal protective equipment (PPE) This may decrease voice recognition accuracy Inadvertent landscape painter errors may occur 09/17/2024 Type 2 diabetes mellitus without complication, without long-term current use of insulin (ICD-10 - E11.9) #Weight Management 09/17/2024 Follow-up on labs from [facility] this morning She is thriving on dual incretin therapy cont Mounjaro to 7.5 mg hemoglobin A1c euglycemic at 5.3 Total time spent today was 30 minutes of which greater than 50% was spent on coordinating and counseling Patient has been found to be obese with a BMI of (33). Patient has class (1) obesity. We are a board certified obesity and weight management practice Patient has trialed behavioral modification, dietary restrictions and exercise for a minimum of 6 months The most recent [place] [employer]ocrinologists and [place] [employer] guidelines recommend patients who [...] software and direct typing Please excuse inadvertent landscape painter or typing errors, or uncorrected word substitutions Although every attempt has been made by the provider to proofread this document, occasional misspellings and typographical errors may still be present Due to the previous pandemic, and the use of personal protective equipment (PPE) This may decrease voice recognition accuracy Inadvertent landscape painter errors may occur 09/17/2024 PCOS (polycystic ovarian syndrome) (ICD-10 - E28.2) #Weight Management 09/17/2024 Follow-up on labs from [facility] this morning She is thriving on dual incretin therapy cont Mounjaro to 7.5 mg hemoglobin A1c euglycemic at 5.3 Total time spent today was 30 minutes of which greater than 50% was spent on coordinating and counseling Patient has been found to be obese with a BMI of (33). Patient has class (1) obesity. We are a board certified obesity and weight management practice Patient has trialed behavioral modification, dietary restrictions and exercise for a minimum of 6 months The most recent [place] [employer]ocrinologists and [place] [employer] guidelines recommend patients who [...] software and direct typing Please excuse inadvertent landscape painter or typing errors, or uncorrected word substitutions Although every attempt has been made by the provider to proofread this document, occasional misspellings and typographical errors may still be present Due to the previous pandemic, and the use of personal protective equipment (PPE) This may decrease voice recognition accuracy Inadvertent landscape painter errors may occur 11/07/2024 PCOS (polycystic ovarian syndrome) (ICD-10 - E28.2) #Weight Management 11/07/2024 Increase Mounjaro to 10 mg She is thriving on dual incretin therapy hemoglobin A1c euglycemic at 5.4 Total time spent today was 30 minutes of which greater than 50% was spent on coordinating and counseling Patient has been found to be obese with a BMI of (33). Patient has class (1) obesity. We are a board certified obesity and weight management practice Of note, some information is being carried forward from prior records for informational purposes only and is being cited so that efficiency, safety and quality of the patient's care is not compromised This note was prepared using voice recognition software and direct typing Please excuse inadvertent landscape painter or typing errors, or uncorrected word substitutions Although every attempt has been made by the provider to proofread this document, occasional misspellings and typographical errors may still be present Due to the previous pandemic, and the use of personal protective equipment (PPE) This may decrease voice recognition accuracy Inadvertent landscape painter errors may occur 04/20/2025 Encounter for examination of blood pressure without abnormal findings (ICD-10 - Z01.30) #Weight Management 04/20/2025 Strongly recommended incorporating micronutrients including B12 complex vitamin D3 with K2 as well as probiotics cont 12.5 mg Total time spent today was 30 minutes of which greater than 50% was spent on coordinating and counseling Patient has been found to be obese with a BMI of (31). Patient has class (1) obesity. We are a board certified obesity and weight management practice Of note, some information is being carried forward from prior records for informational purposes only and is being cited so that efficiency, safety and quality of the patient's care is not compromised This note was prepared using voice recognition software and direct typing Please excuse inadvertent landscape painter or typing errors, or uncorrected word substitutions Although every attempt has been made by the provider to proofread this document, occasional misspellings and typographical errors may still be present Due to the previous pandemic, and the use of personal protective equipment (PPE) This may decrease voice recognition accuracy Inadvertent landscape painter errors may occur 03/16/2025 Encounter for examination of blood pressure without abnormal findings (ICD-10 - Z01.30) #Weight Management 03/16/2025 Increase to 12.5 mg Increase activity and clean up diet hemoglobin A1c euglycemic at 5.4 Total time spent today was 30 minutes of which greater than 50% was spent on coordinating and counseling Patient has been found to be obese with a BMI of (33). Patient has class (1) obesity. We are a board certified obesity and weight management practice Of note, some information is being carried forward from prior records for informational purposes only and is being cited so that efficiency, safety and quality of the patient's care is not compromised This note was prepared using voice recognition software and direct typing Please excuse inadvertent landscape painter or typing errors, or uncorrected word substitutions Although every attempt has been made by the provider to proofread this document, occasional misspellings and typographical errors may still be present Due to the previous pandemic, and the use of personal protective equipment (PPE) This may decrease voice recognition accuracy Inadvertent landscape painter errors may occur 07/13/2025 PCOS (polycystic ovarian syndrome) (ICD-10 - E28.2) #Weight Management 07/13/2025 Patient is thriving euglycemic continued weight loss and good muscle mass and losing fat mass on body composition Continue micronutrients Continue 12.5 mg dosing losartan monotherapy, hctz DC Total time spent today was 30 minutes of which greater than 50% was spent on coordinating and counseling Patient has been found to be obese with a BMI of (30). Patient has class (1) obesity. We are a board certified obesity and weight management practice Of note, some information is being carried forward from prior records for informational purposes only and is being cited so that efficiency, safety and quality of the patient's care is not compromised This note was prepared using voice recognition software and direct typing Please excuse inadvertent landscape painter or typing errors, or uncorrected word substitutions Although every attempt has been made by the provider to proofread this document, occasional misspellings and typographical errors may still be present Due to the previous pandemic, and the use of personal protective equipment (PPE) This may decrease voice recognition accuracy Inadvertent landscape painter errors may occur 06/01/2025 Encounter for examination of blood pressure without abnormal findings (ICD-10 - Z01.30) #Weight Management 06/01/2025 Patient is thriving euglycemic continued weight loss and good muscle mass and losing fat mass on body composition Continue micronutrients Continue 12.5 mg dosing Discussed blood pressure recommendations and will have discussion with her PCP Total time spent today was 30 minutes of which greater than 50% was spent on coordinating and counseling Patient has been found to be obese with a BMI of (30). Patient has class (1) obesity. We are a board certified obesity and weight management practice Of note, some information is being carried forward from prior records for informational purposes only and is being cited so that efficiency, safety and quality of the patient's care is not compromised This note was prepared using voice recognition software and direct typing Please excuse inadvertent landscape painter or typing errors, or uncorrected word substitutions Although every attempt has been made by the provider to proofread this document, occasional misspellings and typographical errors may still be present Due to the previous pandemic, and the use of personal protective equipment (PPE) This may decrease voice recognition accuracy Inadvertent landscape painter errors may occur 07/13/2025 Encounter for examination of blood pressure without abnormal findings (ICD-10 - Z01.30) #Weight Management 07/13/2025 Patient is thriving euglycemic continued weight loss and good muscle mass and losing fat mass on body composition Continue micronutrients Continue 12.5 mg dosing losartan monotherapy, hctz DC Total time spent today was 30 minutes of which greater than 50% was spent on coordinating and counseling Patient has been found to be obese with a BMI of (30). Patient has class (1) obesity. We are a board certified obesity and weight management practice Of note, some information is being carried forward from prior records for informational purposes only and is being cited so that efficiency, safety and quality of the patient's care is not compromised This note was prepared using voice recognition software and direct typing Please excuse inadvertent landscape painter or typing errors, or uncorrected word substitutions Although every attempt has been made by the provider to proofread this document, occasional misspellings and typographical errors may still be present Due to the previous pandemic, and the use of personal protective equipment (PPE) This may decrease voice recognition accuracy Inadvertent landscape painter errors may occur Plan Of Treatment Pending Test Test Name Order Date LIPID PANEL, STANDARD 07/12/2024 COMPREHENSIVE METABOLIC PANEL 07/12/2024 CBC (INCLUDES DIFF/PLT) 07/12/2024 URINALYSIS, COMPLETE 07/12/2024 HEMOGLOBIN A1c 07/12/2024 TSH 07/12/2024 VITAMIN D,25-OH,TOTAL,IA 07/12/2024 Next Appt Details Provider Name:NICO LARSON, 10/19/2025 10:00:00 AM, [address], [place], [address], Insurance Providers Payer Name Payer Address Payer Phone Subscriber Number Group Number Insured Name Patient Relationship to Insured Coverage Start Date Coverage End Date [facility] [address] [place] [address] [id number] TRISH CARLSON Self - patient is the insured Medical (General) History Medical History History ICD Code high blood pressure type II diabetes anxiety depression
--- OUTSIDE RECORDS SUMMARY | 2025-09-04 19:01 | XMS_ITS | Data Portability ---
Author Organization [place] - [facility], Allergy Address [address] [address] Care Team Providers Care Refractory Worker Name Role Phone LISA BESS Primary Care Provider [phone] TREVIN HESTER Primary Care Provider LISA BESS Primary Care Provider [phone] Assessment No assessment recorded. Plan of Treatment Reminders Order Date Submit Date Provider Last Modified By Organization Details Last Modified Time Details Appointments None recorded . Lab None recorded . Referral None recorded . Procedures None recorded . Surgeries None recorded . Imaging None recorded . Medication Orders EpiPen 2-Christopher 0.3 mg/0.3 mL injectio n, auto-inj shannon 024 04/11/20 [id number], [address], [place], [id number], 4 15:20:25 Patient TargetsNo targets recorded. Patient InstructionsNo [...] Details Recorded Time Sensorine ural hearing loss of bilateral ears 408041378 Active 2019 Sensorine ural hearing loss, bilateral ; Note: Date Diagnosed : 06/18/2020 2:43 PM (H90.3) Not Available [facility] 4 02:27:55 Allergic rhinitis 81087158 Active 2019 Other allergic rhinitis; Note: Date Diagnosed : 06/18/2020 3:13 PM (J30.89) Not Available [facility] 4 02:27:56 Sensorine ural hearing loss in left ear 29388057615 109 Active 2022 Sensorine ural hearing loss, unilatera l, left ear, with restricte d hearing on the contralat eral side; Note: Date Diagnosed : 09/27/2022 2:57 PM (H90.A22) Not Available [facility] 4 02:28:00 Bilateral disorder of Eustachia n tubes 77235736723 79638 Active 2022 Other specified disorders of Eustachia n tube, bilateral ; Note: Date Diagnosed : 09/27/2022 2:57 PM (H69.83) Not Available [facility] 4 02:28:07 Conductiv e hearing loss of right ear 0297008716 Active 2022 Conductiv e hearing loss, unilatera l, right ear with restricte d hearing on the contralat eral side; Note: Date Diagnosed : 09/27/2022 2:57 PM (H90.A11) Not Available [facility] 4 02:28:27 Perennial allergic rhinitis 517897746 Active 2023 KEYLA NEWMAN MD [address] [place] [address], [facility] [place], [address] , [facility] - [facility] 4 15:16:24 Problem Notes None recorded. Medical Equipment None Reported. Medications Name Sig Start Date Stop Date Status Note LastModified by Organization Details LastModified Time buspirone 5 mg tablet active Medicati on ID: [id number] B rand Name: buspiron e Send Method: E-Prescr ibed Sub s Allowed: subs OK Medic ationGen ericName : buspiron e Not Available Not Available Not Available fluconazo le 150 mg tablet TAKE 1 TABLET BY MOUTH DAILY active Not Available Not Available No t Available meloxicam 15 mg tablet TAKE 1 TABLET BY MOUTH EVERY DAY active Not Available Not Available No t Available Zyrtec 10 mg tablet 2019 active Medicati on ID: [id number] B rand Name: Zyrtec S end Method: [...] mg tablet 2019 active Medicati on ID: [id number] B rand Name: losartan Send Method: E-Prescr ibed Sub s Allowed: subs OK Medic ationGen ericName : losartan Not Available Not Available Not Available buspirone 7.5 mg tablet TAKE 1 TABLET BY MOUTH TWICE DAILY active Not Available Not Available No t Available [address] 10 mg tablet 11/08 completed Medicati on ID: [id number] B rand Name: monteluk ast Send Method: [...] spray,camille pension 2019 active Medicati on ID: [id number] B rand Name: Flonase Allergy Relief S end Method: E-Prescr ibed Sub s Allowed: subs OK Medic ationGen ericName : Flonase Allergy Relief Not Available Not Available Not Available OneTouch Verio Flex Meter USE TWICE DAILY active Not Available Not Available No t Available Mounjaro 7.5 mg/0.5 mL subcutane ous pen injector ADMINIST ER 7.5 MG UNDER THE SKIN WEEKLY active Not [...] Updated DateTime 04/11/2024 157.48 cm 34.2 kg/m2 50051.77 g Louis Murillo [place] - [facility] 04/11/2024 14:59:48 Social History None recorded. Functional Status None recorded. Mental Status None recorded. Family History Nothing Reported. Medical History No medical history recorded. Gynecological HistoryNo gynecological history recorded. Obstetrics History GPAL:G 0 P 0 0 0 0 Past Encounters Encounter ID Performer Location Encounter Start Date Encounter Closed Date Diagnosis/Indication Diagnosis SNOMED-CT Code Diagnosis ICD10 Code Diagnosis IMO Codes Diagnosis Note [id number] KEYLA NEWMAN MD [facility] [address] [address] 04/11/2024 14:24:56 04/11/2024 15:23:15 Perennial allergic rhinitis [id number] J30.89 She is benefiting from immunother apy and should continue. No local or systemic reactions. Health Concerns Section Related Observation LastModified by Organization Detai ls LastModified Time None Recorded Concern Status LastModified by Organization Details LastModified Time None Recorded Advance Directives Directive None Recorded Payers Insurance Date Sequence Insurance Name Policy Number Policy Benito Covered Member ID Benito Member ID Guarantor Name 10/18/2024 1 [place] [facility] [place] [place] [id number] Ayleen Perez [id number] Ayleen Perez 10/18/2024 1 [employer]-[place] [facility] [id number] Ayleen Perez [id number] Ayleen Perez Notes Date Note Type Note Provider Name and Address Organization Details Recorded Time 04/11/2024 text/html ROS as noted in the HPI Began SLIT 11/2022. She has noted less ear infections since she began. She notes less nasal drainage too. No local or systemic reactions. Epipen has . She is using zyrtec. Uses flonase as needed. KEYLA NEWMAN MD [address] [place] [address], [phone], [facility] - [facility] 04/11/2024 15:20:08 OBGyn Episode No OBEpisode recorded.
== END 2025-09-04 15:16 | disposition home or self-care (01) ==
LOC: HO.RHES 14:14
PROVIDERS: PCP Internal Medicine; Visit Provider Internal Medicine Rheumatology
DX: M12.30 Palindromic rheumatism, unspecified site (principal); I73.00 Raynaud's syndrome without gangrene; R68.2 Dry mouth, unspecified; H04.123 Dry eye syndrome of bilateral lacrimal glands
CPT/HCPCS: 99214

== ENCOUNTER 2025-09-04 14:13 | Outpatient (REF) | payer BC, SELFPAY | END 2025-09-04 14:14 | disposition home or self-care (01) | LOC: HO.HKASLDS 14:13 | PROVIDERS: PCP Internal Medicine; Visit Provider Internal Medicine Rheumatology | DX: I73.00 Raynaud's syndrome without gangrene (principal); M12.30 Palindromic rheumatism, unspecified site; R68.2 Dry mouth, unspecified; H04.123 Dry eye syndrome of bilateral lacrimal glands; Z79.899 Other long term (current) drug therapy | CPT/HCPCS: 36415; 85652; 86038; 86140; 86200; 86235; 86431 ==